=== PATIENT | female | born 1945 | race Caucasian/White ===

== ENCOUNTER 2025-06-28 07:28 | Outpatient (CLI) | payer MEDICARE, BC, SELFPAY | END 2025-06-28 07:29 | disposition home or self-care (01) | LOC: AMB 06-30 14:29 | PROVIDERS: Visit Provider Family Medicine | DX: S99.922A Unspecified injury of left foot, initial encounter (principal); W01.198A Fall on same level from slipping, tripping and stumbling with subsequent striking against other object, initial encounter; Y92.039 Unspecified place in apartment as the place of occurrence of the external cause | CPT/HCPCS: A0425; A0427 ==

== ENCOUNTER 2025-07-08 09:54 | Emergency (ER) | payer MEDICARE, BC, SELFPAY ==
--- OUTSIDE RECORDS SUMMARY | 2023-11-02 08:57 | XMS_ITS | Continuity of Care Document ---
Author Organization [facility] Address [address] [address] [place] [address] Phone Care Team Providers Care Shift Supervisor Melting Name Role Phone Solis Hill MD Unavailable Unavailabl e Allergies, Adverse Reactions, Alerts Substance Reaction Status Criticality doxycycline HivesHives Active No Information levofloxacin HivesHives Active No Information morphine Seeing things that weren't the Active No Information Sulfa (Sulfonamide Antibiotics) Rash Active No Information Medications Medication Instructions Dosage Effective Dates (start - stop) Status Comments losartan 50 mg tablet take 1 tablet by oral route every day 50 MG - Active Phazyme Gas and Acid 750 mg-250 mg chewable tablet - Active Farxiga 10 mg tablet take 1 tablet by oral route every day in the morning 10 MG - Active torsemide 20 mg tablet take 1 tablet by oral route every day 20 MG - Active levothyroxine 112 mcg tablet take 1 tablet by oral route every day 112 MCG - Active isosorbide mononitrate ER 120 mg tablet,extended release 24 hr take 1 tablet by oral route every day in the morning 120 MG - Active lansoprazole 30 mg capsule,delayed release take 1 capsule by oral route every day before a meal 30 MG - Active sertraline 50 mg tablet take 1 tablet by oral route every day 50 MG - Active spironolactone 25 mg tablet take 1 tablet by oral route every day 25 MG - Active buspirone 15 mg tablet take 1 tablet by oral route 2 times every day 15 MG - Active allopurinol 100 mg tablet take 1 tablet by oral route 2 times every day 100 MG - Active amlodipine 10 mg tablet take 1 tablet by oral route every day 10 MG - Active fenofibrate nanocrystallized 145 mg tablet take 1 tablet by oral route every day 145 MG - Active anastrozole 1 mg tablet take 1 tablet by oral route every day 1 MG - Active prasugrel 5 mg tablet take 1 tablet by oral route every day 5 MG - Active metoprolol succinate ER 50 mg tablet,extended release 24 hr take 1 tablet by oral route every day 50 MG - Active rosuvastatin 40 mg tablet take 1 tablet by oral route every day 40 MG - Active Calcium 600 + D(3) 600 mg-10 mcg (400 unit) tablet take 2 capsule by oral route every day 2 capsule - Active Vitamin D3 25 mcg (1,000 unit) tablet take 1 tablet by oral route every day 1 tablet - Active PreserVision AREDS-2 250 mg-90 mg-40 mg-1 mg capsule take 2 tablet by oral route every day 2 tablet - Active aspirin 81 mg tablet,delayed release take 1 tablet by oral route every day 81 MG - Active Procedures Procedure Date Init Hosp-da E&m Hi Severity 7 24 Offic/outpt E&m Estab Mod-hi 2 24 Offic/outpt E&m Estab Low-mod 3 Routine Serum Collection Dietitian Established Virtual Visit Dietitian New Virtual Visit Offic/outpt E&m Estab Mod-hi 2 23 Established Level 4 Init Hosp-da E&m Mod Severity 2 Subsqt Hosp-da E&m Minr Compl 2 Subsqt Hosp-da E&m Minr Compl 2 Advance Directives Directive Yes / No Effective Date File Name No Information Encounters Encounter Description Practice Location Reason(s) For Visit Diagnoses Date Provider Providers Copied on Encounter [facility], [address] [address], [place], [id number], [place] tel:[phone] [facility] No Information 4 Satinder Ely. [address] [facility], [place], [id number] , [place]. tel: [phone] Init Hosp-da E&m Hi Severity 7 [facility], [address] [address], [place], [id number], [place] tel:[phone] [facility] No Information 4 Nova Anguloy. [address] [facility] [address], [place], [id number] , [place]. tel:[phone] Referring Provider: Judah Yadav MD, [address] [place] [address], [id number]. tel:[phone] Offic/outpt E&m Estab Mod-hi 2 [facility], [address] [address], [place], [id number], [place] tel:[phone] [facility] GI Symptoms or Concerns (chief complaint) B12 deficiencyChange in bowel habitsDyspepsia 4 Rafal Lopez. [address] [facility], [address], [place], [id number] , [place]. tel:[phone] Referring Provider: Referral Self, USE FOR SELF REFERRALS. [facility], [address] [address], [place], [id number], [place] tel:[phone] [facility] No Information 4 Satinder Ely. [address] [facility], [address], [place], [id number] , [place]. tel:[phone] [facility], [address] [address], [place], [id number], [place] tel:[phone] [facility] B12 deficiency 3 Venus Garnica. [address], [address], [place], [place], [id number] , [place]. tel:[phone] Offic/outpt E&m Estab Low-mod [facility], [address] [address], [place], [place], [id number], [place] tel:[phone] [facility] GI Symptoms or Concerns (chief complaint) [id number] deficiency 3 Venus Garnica. [address] [facility], [address], [place], [id number] , [place]. [phone] Referring Provider: Referral Self, USE FOR SELF REFERRALS. [facility], [address] [address], [place], [id number], [place] tel:[phone] [facility] GI Symptoms or Concerns (chief complaint) Irritable bowel syndrome with diarrheaDietary counseling and surveillance 3 Russell Rivera. [address] [facility] [address], [address], [place], [place], [id number] , [place]. [phone] Referring Provider: Referral Self, USE FOR SELF REFERRALS. [facility], [address] [address], [place], [id number], [place] tel:[phone] [facility] No Information 3 Satinder Ely. [address] [facility], [address], [place], [place], [id number] , [place]. [phone] [facility], [address] [address], [place], [id number], [place] tel:[phone] [facility] GI Symptoms or Concerns (chief complaint) Irritable bowel syndrome with diarrheaDietary counseling and surveillance 3 Russell Rivera. [address] [facility], [address], [place], [place], [id number] , [place]. [phone] Referring Provider: Referral Self, USE FOR SELF REFERRALS. [facility], [address] [address], [place], [id number], [place] tel:[phone] [facility] No Information 3 Venus Garnica. [address] [facility], [address], [place], [id number] , [place]. tel: [phone] [facility], [address] [address], [place], [id number], [place] tel:[phone] [facility] Change in bowel habits 3 Venus Garnica. [address] [facility], [address], [place], [id number] , [place]. tel: [phone] Offic/outpt E&m Estab Mod-hi 2 [facility], [address] [address], [place], [id number], [place] tel:[phone] [facility] GI Symptoms or Concerns (chief complaint) Abdominal discomfortIrritab le bowel syndrome with diarrhea 3 Venus Garnica. [address] [facility], [facility] [address], [place], [id number] , [place]. tel: [phone] Referring Provider: Referral Self, USE FOR SELF REFERRALS. [facility], [address] [address], [place], [id number], [place] tel:[phone] [facility] No Information 3 Satinder Ely. [address] [facility], [facility] [address], [place], [id number] , [place]. tel: [phone] Established Level 4 [facility], [address] [address], [place], [id number], [place] tel:[phone] [facility] GI Symptoms or Concerns (chief complaint) Abdominal discomfortChange in bowel habits 3 Jens Malhotra. [address] [facility], [address], [place], [place], [id number] , [place]. tel: [phone] Referring Provider: Referral Self, USE FOR SELF REFERRALS. [facility], [address] [address], [place], [id number], [place] tel:[phone] [facility] No Information 3 Satinder Ely. [address] [facility], [facility] [address], [place], [id number] , [place]. tel: [phone] [facility], [address] [address], [place], [id number], [place] tel:[phone] [facility] Acute diverticulitis 2 Richie Sorto. [address] [facility], [address], [place], [id number] , [place]. tel: [phone] Init Hosp-da E&m Mod Severity [facility], [address] [address], [place], [id number], [place] tel:[phone] [facility] No Information 2 Richie Sorto. [address] [facility], [facility] [address], [place], [id number] , [place]. tel: [phone] Referring Provider: Judah Yadav MD, [address] [place] [address], [address]. tel:[phone] Family History Family Member Type Diagnosis Age At Onset Mother Problem (finding) GERD Mother Problem (finding) Cancer, unknown Mother Problem (finding) Cancer, breast Father Problem (finding) Alcoholism Brother Problem (finding) GERD Mother Problem (finding) Thyroid disorder Brother Problem (finding) Cancer, prostate Immunizations Vaccine Date Status Comments Respiratory syncytial virus (RSV), vaccine, recombinant, protein subunit RSV prefusion F, adjuvant reconstituted, 0.5 mL, preservative free administered Note: [facility] bi-direct ional interface ; Source: Other Registry SARS-COV-2 (COVID-19) vaccin e, mRNA, spike protein, LNP, preservative free, 50 mcg/0.5 mL dose administered Note: [facility] bi-direct ional interface ; Source: Other Registry influenza, seasonal vaccine, quadrivalent, adjuvanted, 0.5mL dose, preservative free administered Note: [facility] bi-di rectional interface ; Source: Other Registry tetanus toxoid, reduced diphtheria toxoid, and acellular pertussis vaccine, adsorbed administered Note: [facility] b i-directional interface ; Source: Other Registry SARS-COV-2 (COVID-19) vaccin e, mRNA, spike protein, LNP, bivalent, preservative free, 50 mcg/0.5 mL or 25 mcg/0.25 mL dose administered Note: [facility] bi-direct ional interface ; Source: Other Registry SARS-COV-2 (COVID-19) vaccin e, mRNA, spike protein, LNP, bivalent booster, preservative free, 50 mcg/0.5 mL or 25 mcg/0.25 mL dose administered Note: [facility] bi-direct ional interface ; Source: Other Registry influenza, seasonal vaccine, quadrivalent, adjuvanted, 0.5mL dose, preservative free administered Note: [facility] bi-di rectional interface ; Source: Other Registry influenza, seasonal vaccine, quadrivalent, adjuvanted, .5mL dose, preservative free administered Note: [facility] bi-di rectional interface ; Source: Other Registry SARS-COV-2 (COVID-19) vaccin e, mRNA, spike protein, LNP, preservative free, 100 mcg/0.5mL dose or 50 mcg/0.25mL dose administered Note: [facility] bi -directional interface ; Source: Other Registry SARS-COV-2 (COVID-19) vaccin e, mRNA, spike protein, LNP, preservative free, 100 mcg/0.5mL dose or 50 mcg/0.25mL dose administered Note: [facility] bi -directional interface ; Source: Other Registry influenza, seasonal vaccine, quadrivalent, adjuvanted, 0.5mL dose, preservative free administered Note: [facility] bi-di rectional interface ; Source: Other Registry influenza, seasonal vaccine, quadrivalent, adjuvanted, .5mL dose, preservative free administered Note: [facility] bi-di rectional interface ; Source: Other Registry SARS-COV-2 (COVID-19) vaccin e, mRNA, spike protein, LNP, preservative free, 100 mcg/0.5mL dose or 50 mcg/0.25mL dose administered Note: [facility] bi -directional interface ; Source: Other Registry zoster vaccine recombinant administered N ote: [facility] bi-directional interface ; Source: Other Registry influenza, seasonal vaccine, quadrivalent, adjuvanted, 0.5mL dose, preservative free administered Note: [facility] bi-di rectional interface ; Source: Other Registry influenza, seasonal vaccine, quadrivalent, adjuvanted, .5mL dose, preservative free administered Note: [facility] bi-di rectional interface ; Source: Other Registry zoster vaccine recombinant administered N ote: [facility] bi-directional interface ; Source: Other Registry Seasonal trivalent influenza vaccine, adjuvanted, preservative free administered Note: [facility] bi-direct ional interface ; Source: Other Registry Seasonal trivalent influenza vaccine, adjuvanted, preservative free administered Note: [facility] bi-direct ional interface ; Source: Other Registry Seasonal trivalent influenza vaccine, adjuvanted, preservative free administered Note: [facility] bi-direct ional interface ; Source: Other Registry influenza, high dose seasona l, preservative-free administered Note: [facility] bi-direct ional interface ; Source: Other Registry Prevnar 13 administered Note: [facility] bi-d irectional interface ; Source: Other Registry influenza, high dose seasona l, preservative-free administered Note: [facility] bi-direct ional interface ; Source: Other Registry influenza, high dose seasona l, preservative-free administered Note: [facility] bi-direct ional interface ; Source: Other Registry Pneumovax administered Note: [facility] bi-d irectional interface ; Source: Other Registry tetanus toxoid, reduced diphtheria toxoid, and acellular pertussis vaccine, adsorbed administered Note: [facility] b i-directional interface ; Source: Other Registry Influenza, seasonal, injecta ble, preservative free administered Note: [facility] bi-direct ional interface ; Source: Other Registry zoster vaccine, live administered Note: [facility] bi-directional interface ; Source: Other Registry Influenza, seasonal, injectable administe red Note: [facility] bi- directional interface ; Source: Other Registry Novel [id number], all formulations administered Note: [facility] bi-direct ional interface ; Source: Other Registry Influenza, seasonal, injectable administe red Note: [facility] bi- directional interface ; Source: Other Registry Pneumovax 23 administered Note: [facility] bi-d irectional interface ; Source: Other Registry Influenza, seasonal, injectable administe red Note: [facility] bi- directional interface ; Source: Other Registry Influenza, seasonal, injectable administe red Note: [facility] bi- directional interface ; Source: Other Registry Havrix administered Note: [facility] bi-d irectional interface ; Source: Other Registry tetanus and diphtheria toxoi ds, adsorbed, preservative free, for adult use (5 Lf of tetanus toxoid and 2 Lf of diphtheria toxoid) administered Note: [facility] bi-direct ional interface ; Source: Other Registry Havrix administered Note: [facility] bi-d irectional interface ; Source: Other Registry Influenza, seasonal, injectable administe red Note: [facility] bi- directional interface ; Source: Other Registry Influenza, seasonal, injectable administe red Note: [facility] bi- directional interface ; Source: Other Registry Payers Payer name Insurance type Covered democrat ID Authoriza tion(s) No Information Social History Type Description Quantity Date Captured Comments Sex Female Smoking Status No Information Chief Complaint And Reason For Visit No Information Reason For Referral Reason For Referral No Information Plan Of Treatment Date Type Action Status Referral Ordered: EGD Appointment date/timeframe: 09/02/2023 [id number] Ordered: Breath Test Glucose Appointment date/timeframe: First Available [id number] Ordered: Breath Test Lactose Appointment date/timeframe: First Available [id number] Ordered: Breath Test Fructose Appointment date/timeframe: First Available [id number] Ordered: Colonoscopy Appointment date/timeframe: 01/19/2022 ordered History Of Present Illness Encounter Date Complaint History Of Prese nt Illness GI Symptoms or Concerns Elda Keith is a pleasant 78F with hx of vitamin B12 deficiency,Heart failure, mitral valve regurgitation, CKD and CAD who presents for follow-up. she was last seen in clinic in May 2023 for vitamin B12 deficiency and irregular bowel habits. Her intrinsic factor antibody was tested to be positive and she was recommended to have an upper endoscopy. However, she reports that her abdominal symptoms have improved and she ended up cancelling in the upper endoscopy due to a trip she needs to take. Today, she reports having trouble with constipation and irregular bowel habits and abdominal bloating. This is similar to her prior endorse symptoms. She is using Gas-X/Phazyme twice a day which helps with bloating. At last visit, she also reported having 20 pound weight loss over the last few months, her weight has been stable recently. . No dysphagia, nausea or vomiting, GI bleeding. GI Symptoms or Concerns A 78-yea r-old female patient who presents for followup of irritable bowel syndrome. She has a history of heart failure, mitral valve regurgitation, CKD, and CAD, and was last seen in our clinic on 02/11/2023. Symptoms included borborygmi, abdominal discomfort, and frequent bowel movements. Symptoms started after she had an episode of diverticulitis back in 2021. Last colonoscopy was unremarkable in 2021 done by Colorectal Surgery. She also had a CT scan of the abdomen and pelvis with no clear findings. We provided her treatment with rifaximin for presumed IBS-D after the last visit. She called 2 weeks after the treatment reporting persistent symptoms; therefore, we started her on low-FODMAP diet. Today, she presents for a followup. The patient reports that she took rifaximin for 2 weeks with no benefit. She started low-FODMAP diet later on and noted significant improvement and she did the reintroduction face and noted that she tolerated everything, but she did not try give ag GI Symptoms or Concerns New Ginny ent Nutrition AssessmentAnthropometrics: Patient notes that she lost 20lb recently but this was thought to be due to her diuretic which has since been decreased. Other Supplements: Citrucel fiber, simethiconeFood and Exercise History: Patient has continued on the low fodmap diet but has started bringing foods back into to test her tolerance to them. She plans to continue this with hopes of expanding her diet. Nutrition Diagnosis:Food and nutrition related knowledge deficit related to the low fodmap diet as evidenced by patient request for information. Nutrition Discussion and Education:Met with patient for virtual follow up visit today. We last met on 03/10/23 and at that time, she was experiencing alot of what sounded to be gas pain. She would get rumbling in her stomach after eating, followed by intense pain where she needed to lay down for awhile, followed by passing alot of gas. She had tried the low fodmap diet at that point but not strictly and I recommended a trial of this. She had a pharmacist recommend taking a simethicone based medication with meals which she did. She notes that this has helped tremendously. She has been able to bring in some new foods which she was limiting before like apples, beef roast and a little bit of ice cream (she also takes lactaid pills). She was able to eat kenyan food comfortably also. She plans to continue to expand her diet and I encouraged her to do this. She is appreciative of visit and welcome to follow ups as needed. GI Symptoms or Concerns New Ginny ent Nutrition AssessmentAnthropometrics: Wt: Went from 173lb in January to currently 164.4lbOther Supplements: Miralax - 1.5 tsp every day which has helped to loosen up the stoolsFood and Exercise History: Diet Recall: Recently reduced lactose Breakfast: Raisin Bran with lactaid or unsweetened almond milk, cutie oranges (1-2) and a few grapesLunch: Lettuce salad with poppy seed dressing, white rice, 1/2 bananaDinner: Fried chicken (peeled off skin) Beverages: Water mostly, sometimes Simply Lemonade, occasionally sugar free gingeraleNutrition Diagnosis:Food and nutrition related knowledge deficit related to the low fodmap diet as evidenced by patient request for information. Nutrition Discussion and Education:Met with patient for virtual visit today. She has a history of diverticulosis with recent flare of diverticulitis requiring hospital stay. She notes that she recently had a CT scan after hospital stay and no diverticulitis was noted. Over the past 6-8 months, she has been getting abdominal pain after she eats, typically later in the day but not always. She notes that after an hour or so the pain subsides and she experiences a large amount of gas and/or loose stool. She took rifaxamin for two weeks but did not feel this helped fully. She has been trying the low fodmap diet but is not adhering to this strictly but does not feel that this has fully helped either. She has been taking Miralax for the past month and this has helped her bowel movements from the constipated end toward more formed, regular stools. She notes that the pain and gas are still present, however. Her pharmacist recently recommended a simethicone based medication and she is considering trying this. We discussed the breath tests that were also discussed last MD visit and she may be interested in the glucose breath test. She was unsure about this test before because it sounded confusing. She may also give the low fodmap diet another try for a week or so following this strictly to assess for symptom relief. She would like to follow up in 1-2 months and an order was placed for this today. GI Symptoms or Concerns 78-year- old female patient with history of heart failure, mitral valve regurgitation, CKD, CAD, who presents for follow-up. She was last seen in the GI clinic in July by Dr. Colindres. At that time she was having symptoms of borborygmi, abdominal cramps, and frequent bowel movements during the day, with relief of symptoms after bowel movements. At that time she noted increased symptoms after starting famotidine, and famotidine was restarted them. She was advised to start Colace then, however that caused her diarrhea therefore she stopped it. She reports that she did well after that and required hospitalization twice between September and October for COVID and for heart failure and continued to do well, however later on her symptoms started again and became more significant recently. Similar to what she had in the past but more significant with the borborygmi, and frequent bowel movements during the day, and abdominal cramps that are relieved after bowel movements or passing of gas. She reports that she was started on torsemide and Farxiga before symptoms started again. She was wondering if symptoms are related to these medications, however she did have similar but less severe symptoms when she was seen in July before starting these medications. She reports that she had a colonoscopy done in February 2022 by Colorectal surgery and had hemorrhoidal banding then. She did have some rectal bleeding recently, and was evaluated again by Colorectal surgery just recently, and was advised that these symptoms are related to frequent bowel movements and her hemorrhoids. Patient reports that her symptoms occur mostly after lunch and after supper. Nothing specific that trigger her symptoms other than ice cream that she noticed that it does trigger more symptoms recently. She has had same breakfast for a long period of time including grapes, cereal, with no issues after breakfast. Of note, patient used to have normal 1 bowel movement every day in the past before she was hospitalized in 2021 for an episode of diverticulitis. Since that time she started having these new symptoms. GI Symptoms or Concerns I had th e pleasure of having a virtual consultation with Ms. Elda Keith. Elda consented to a virtual consultation. We were alone on the line together. We spoke for approximately 20 minutes. I spent an additional 15 minutes reviewing medical records and coordinating care. The level of clinical decision making was moderate to high.CHIEF COMPLAINTChange in bowel habits and abdominal discomfort.HISTORY OF PRESENT ILLNESSAs you recall, Elda is a 77-year-old woman with a history of CKD, CAD, hypertension, mitral valve regurgitation, and history of embolism, who presents to GI clinic with a complaint of abdominal discomfort and change in bowel habits. She says the symptoms have been ongoing for several months. She describes a discomfort in the lower abdomen, then urgency to make a bowel movement and she will eventually pass some stool and feel better. She also has auditory digestion and borborygmi, lots of gurgling. She was seen in November 2021 by my partner at Functional Status Date Functional Assessmen t No Information Instructions Date Instruction Additional Infor bola It was a pleasure me eting you today, as we discussed in clinic: We will plan to do an upper endoscopy with biopsies of your upper GI tract to evaluate for autoimmune gastritis.Continue Gas-X as needed for bloating, can also use IB [place] as neededStart every other day Miralax and self-titrate to ensure daily bowel movements. If you have any worsening symptoms, please contact us or schedule a visit with us. Related to B12 deficiency 1. Check anti-intrin sic factor antibody and antiparietal cell antibody.2. We will check celiac markers.3. We told the patient that if she develops recurrence of her symptoms, then we will refer her for an upper endoscopy even if autoimmune gastritis markers are negative. If the markers are positive, we will refer for an upper endoscopy, which needs to be done in the hospital because of her multiple comorbidities.4. Continue with Phazyme for her symptoms.5. Follow up in 3 months. We do not have H. pylori blood test available, therefore we cannot check for H. pylori at this time given that she is on antacid medication. Related to Dyspepsia 1. Continue taking t he simethicone based medication if you find this is helping to control the gas. 2. Do continue expanding your diet slowly to see if we can't start including some higher fodmap foods that you were previously limiting. 3. Continue with the lactaid pills if you find this is helping as well. You could certainly try not using them a time or two to see if it's really needed, but start taking them again if you experience symptoms. 4. Feel free to make a follow up visit at any time or send questions/concerns through the patient portal. Related to Irritable bowel syndrome with diarrhea 1. Try a simethicone based medication for several weeks to see if this helps with the pain and gas production. 2. After several weeks, you could try adding a small amount of fiber like Citrucel back into your routine as long as you keep the Miralax on board. It sounds like Miralax is the most helpful for you but you could try combining them to see if you get more relief. 3. Finally, you can try adhering very strictly to the low fodmap diet for a week or so to see if this is helpful. Look into [employer] for low fodmap delivery meals if this is of interest to you. 4. Remember, only try one thing that we discussed at a time so we know what is working. 5. I have placed a follow up order for us to meet again within 2 months. If you have any questions or concerns in the meantime you can send them through the patient portal or call [phone], [phone]. Related to Irritable bowel syndrome with diarrhea Start rifaximin 550 milligram t.i.d. for 2 weeks for IBS D. Advised to contact us in 3-4 weeks, and if symptoms persist, to start low FODMAP diet. She will need to do it for 3 weeks persistently, and if beneficial to start the reintroduction phase, otherwise if no benefit then to stop it. May consider hydrogen breath testing for lactose, fructose, and bacterial overgrowth with lactulose given that she is diabetic. May also consider tricyclic antidepressant. Follow-up in 3 months. Related to Irritable bowel syndrome with diarrhea 1. Restart famotidin e 20 mg twice per day in addition to lansoprazole.2. Restart fiber supplement, Citrucel, along with Colace and she will adjust the dose as she sees fit.3. We will leave her next appointment on an as-needed basis and she knows she can reach me at any time should the need arise.Thank you so much for involving me in the care of Ms. Keith. Related to Abdominal discomfort Assessments Type Assessment Date No Information Patient Care Teams Name Effective Dates (start - stop) Status Members No Information
--- OUTSIDE RECORDS SUMMARY | 2023-11-02 08:57 | XMS_ITS | Continuity of Care Document ---
Author Organization [facility] Address [address] [address] [place] [address] Phone Care Team Providers Care Bookkeeper Name Role Phone Solis Hill MD Unavailable [...] Diagnoses Date Provider Providers Copied on Encounter [facility], [address] [address], [place], [id number], [place] tel:[phone] [facility] No Information 4 Satinder Ely. [address], [place], [id number] , [place]. tel: [phone] Init Hosp-da E&m Hi Severity 7 [facility], [address] [address], [place], [id number], [place] tel:[phone] [facility] No Information 4 Nova Anguloy. [address], [place], [id number] , [place]. tel: [phone] Referring Provider: Judah Yadav MD, [address] [place] [address], [address]. tel:[phone] Offic/outpt E&m Estab Mod-hi 2 [facility], [address] [address], [place], [id number], [place] tel:[phone] [facility] GI Symptoms or Concerns (chief complaint) B12 deficiencyChange in bowel habitsDyspepsia 4 Rafal Lopez. [address], [place], [id number] , [place]. [phone] Referring Provider: Referral Self, USE FOR SELF REFERRALS. [facility], [address] [address], [place], [id number], [place] tel:[phone] [facility] No Information 4 Satinder Ely. [address], [place], [place], [id number] , [place]. tel:[phone] [facility], [address] [address], [place], [id number], [place] tel:[phone] [facility] B12 deficiency 3 Venus Garnica. [address], [place], [place], [address] , [place]. tel:[phone] Offic/outpt E&m Estab Low-mod [facility], [address] [address], [place], [id number], [place] tel:[phone] [facility] GI Symptoms or Concerns (chief complaint) [id number] deficiency 3 Venus Garnica. [address], [place], [place], [id number] , [place]. [phone] Referring Provider: Referral Self, USE FOR SELF REFERRALS. [facility], [address] [address], [place], [place], [id number], [place] tel:[phone] [facility] GI Symptoms or Concerns (chief complaint) Irritable bowel syndrome with diarrheaDietary counseling and surveillance 3 Russell Rivera. [address], [place], [place], [id number] , [place]. [phone] Referring Provider: Referral Self, USE FOR SELF REFERRALS. [facility], [address] [address], [place], [id number], [place] tel:[phone] [facility] No Information 3 Satinder Ely. [address], [place], [place], [address] , [place]. [phone] [facility], [address] [address], [place], [address], [place] tel:[phone] [facility] GI Symptoms or Concerns (chief complaint) Irritable bowel syndrome with diarrheaDietary counseling and surveillance 3 Russell Rivera. [address], [place], [place], [address] , [place]. [phone] Referring Provider: Referral Self, USE FOR SELF REFERRALS. [facility], [address] [address], [place], [address], [place] tel:[phone] [facility] No Information 3 Venus Garnica. [address], [place], [id number] , [place]. tel: [phone] [facility], [address] [address], [place], [address], [place] tel:[phone] [facility] Change in bowel habits 3 Venus Garnica. [address], [place], [id number] , [place]. tel: [phone] Offic/outpt E&m Estab Mod-hi 2 [facility], [address] [address], [place], [id number], [place] tel:[phone] [facility] GI Symptoms or Concerns (chief complaint) Abdominal discomfortIrritab le bowel syndrome with diarrhea 3 Venus Garnica. [address], [facility] [address], [place], [id number] , [place]. tel: [phone] Referring Provider: Referral Self, USE FOR SELF REFERRALS. [facility], [address] [address], [place], [id number], [place] tel:[phone] [facility] No Information 3 Satinder Ely. [address], [facility] [address], [place], [id number] , [place]. tel: [phone] Established Level 4 [facility], [address] [address], [place], [id number], [place] tel:[phone] [facility] GI Symptoms or Concerns (chief complaint) Abdominal discomfortChange in bowel habits 3 Jens Malhotra. [address], [place], [place], [address] , [place]. tel: [phone] Referring Provider: Referral Self, USE FOR SELF REFERRALS. [facility], [address] [address], [place], [place], [address], [place] tel:[phone] [facility] No Information 3 Satinder Ely. [address], [facility] [address], [place], [id number] , [place]. tel: [phone] [facility], [address] [address], [place], [id number], [place] tel:[phone] [facility] Acute diverticulitis 2 Richie Sorto. [address], [place], [id number] , [place]. tel: [phone] Init Hosp-da E&m Mod Severity [facility], [address] [address], [place], [id number], [place] tel:[phone] [facility] No Information 2 Richie Sorto. [address], [facility] [address], [place], [id number] , [place]. tel: [phone] Referring Provider: Judah Yad[place] MD, [id number] [place] [address], [address]. tel:[phone] Family History Family Member Type Diagnosis Age [...] directional interface ; Source: Other Registry Novel [id number], all formulations administered Note: [facility] bi-direct ional [...] Registry Payers Payer name Insurance type Covered republican ID Authoriza tion(s) No Information Social History Type Description Quantity Date Captured Comments Sex Female Smoking Status No Information Chief Complaint And Reason For Visit No Information Reason For Referral Reason For Referral No Information Plan Of Treatment Date Type Action Status Referral Ordered: EGD Appointment date/timeframe: 09/02/2023 [id number] Ordered: Breath Test Glucose Appointment date/timeframe: First Available [id number] Ordered: Breath Test Lactose Appointment date/timeframe: First Available [id number] Ordered: Breath Test Fructose Appointment date/timeframe: First Available [id number] Ordered: Colonoscopy Appointment date/timeframe: 01/19/2022 ordered History [...] lactaid pills). She was able to eat [place] food comfortably also. She plans to continue [...] see if this is helpful. Look into [employer] for low fodmap delivery meals if this [...] them through the patient portal or call [phone], [phone]. Related to Irritable bowel syndrome with diarrhea [...]
--- OUTSIDE RECORDS SUMMARY | 2025-06-28 09:10 | XMS_ITS | Encounter Summary ---
Author Organization [facility] Address [address] [place] [id number] Care Team Providers Care Steersman Name Role Phone Judah Yadav MD Primary Care Provider [phone] Reason for Visit * ReasonCommentsFoot Pain Encounter Details DateTypeDepartmentCare Team (Latest Contact Info)Qdesrpoatwh36/17/2025 9:10 AM GRAIN ELEVATOR MAN - 06/28/2025 11:25 AM [facility] [address] [place] [id number] [phone] Diaz Chowdhury MD [facility] [address] [place], [place] [id number] Foot injury, left, initial encounter (Primary Dx); Acute left ankle pain; Acute pain of left knee Discharge Disposition: Home or Self Care Social History Tobacco UseTypesPacks/DayYears UsedDateSmoking Tobacco: FormerCigarettes Smokeless Tobacco: NeverAlcohol UseStandard Drinks/WeekCommentsNot Currently0 (1 standard drink = 0.6 oz pure alcohol)Adolescent EducationAnswerDate Recorded Getting School Help NeededNot on file3CommentsNoSex and Gender InformationValueDate RecordedSex Assigned at BirthNot on fileLegal SexFemale 05/16/2012 3:14 AM CSTGender IdentityNot on fileSexual OrientationNot on file documented as of this encounter Last Filed Vital Signs Vital SignReadingTime TakenCommentsBlood Rhzdutvf594/8706/28/2025 8:21 AM GRAIN ELEVATOR MAN Jbcsi399506/28/2025 8:21 AM XFOVjrbommrbhx53.1 ??C (96.9 ??F)06/28/2025 8:21 AM CSTRespiratory Rxsb512508/29/2024 8:21 AM CSTOxygen Gkjqrkzodk67%06/28/2025 8:22 AM CSTInhaled Oxygen Concentration--Yvstge43.5 kg (162 lb)06/28/2025 8:21 AM GRAIN ELEVATOR MAN Height--Body Mass Index30.98003/12/2022 5:49 AM CDTdocumented in this encounter Functional Status * Calculated C-SSRS Risk Score (Lifetime/Recent)AnswerDate of AssessmentAuthorNo Risk Vgciydxaw63/17/2025 8:17 AM Evelyn Dill RN * Piatt Suicide Severity Rating Scale (Screener/Recent Self-Report)Question AnswerDate of AssessmentAuthor1. Wish to be (Past 1 Month)No06/28/2025 8:17 AM Evelyn Dill RN2. Non-Specific Active Suicidal Thoughts (Past 1 Month)No06/28/2025 8:17 AM Evelyn Dill RN6. Suicidal Behavior (Lifetime)No06/28/2025 8:17 AM Evelyn Dill RN documented as of this encounter Discharge Instructions * Discharge Instructions* Diaz Chowdhury MD - 06/28/2025 11:08 AM GRAIN ELEVATOR MAN It was a pleasure taking care of you today. I hope you feel much better soon. Your x-rays were reassuring. Please follow-up with orthopedic doctor in 3-5 days. Return immediately for worse pain or any other concerns. N ELEVATOR MAN * Attachments The following attachments cannot be sent through Care Everywhere. * Foot Pain (Peruvian) documented in this encounter Medications at Time of Discharge MedicationSigDispense QuantityRefillsLast FilledStart DateEnd Date acetaminophen (TYLENOL) 325 MG tablet Take 650 mg by mouth every 6 hours as needed for mild pain allopurinol (ZYLOPRIM) 100 MG tablet Take 200 mg by mouth daily amLODIPine (NORVASC) 10 MG tablet Take 10 mg by mouth daily anastrozole (ARIMIDEX) 1 MG tablet Take 1 mg by mouth daily aspirin (ASA) 81 MG chewable tablet Take 81 mg by mouth daily (with breakfast) Blood Pressure KIT Indications:XL busPIRone (BUSPAR) 15 MG tablet Take 15 mg by mouth 2 times daily CALCIUM-CHOLECALCIFEROL PO Indications:600mg -200 mg capsulesTake 2 capsules by mouth daily cephALEXin (KEFLEX) 500 MG capsule Indications:Takes 4 (500mg) capsules prior to a procedure.Take 2,000 mg by mouth once as needed ELIQUIS ANTICOAGULANT 5 MG tablet Take 5 mg by mouth 2 times daily. EPINEPHrine (ANY BX GENERIC EQUIV) 0.3 MG/0.3ML injection 2-pack Inject 0.3 mg into the muscle once as needed for anaphylaxis Famotidine (PEPCID PO) Take 415 mg by mouth 2 times daily fenofibrate (TRICOR) 145 MG tablet Take 145 mg by mouth daily (with breakfast) isosorbide mononitrate CR (IMDUR) 120 MG 24 HR ER tablet Take 120 mg by mouth daily before breakfast Lansoprazole (PREVACID PO) Take 30 mg by mouth every morning (before breakfast) levothyroxine (SYNTHROID/LEVOTHROID) 100 MCG tablet Take 112 mcg by mouth daily before breakfast loratadine (CLARITIN) 10 MG tablet Take 10 mg by mouth daily LORazepam (ATIVAN) 0.5 MG tablet Indications:Before a Dental Procedure.Take by mouth once as needed for anxiety losartan (COZAAR) 100 MG tablet Take 100 mg by mouth daily metoprolol succinate ER (TOPROL XL) 50 MG 24 hr tablet Take 50 mg by mouth daily Multiple Vitamins-Minerals (PRESERVISION AREDS 2 PO) Take 1 capsule by mouth 2 times daily nitroGLYcerin (NITROSTAT) 0.[address] 0.4 mg under the tongue every 5 minutes as needed for chest pain For chest pain place 1 tablet under the tongue every 5 minutes for 3 doses. If symptoms persist 5 minutes after 1st dose call 911. ondansetron (ZOFRAN) 4 MG tablet Take by mouth every 8 hours as needed for nausea pramoxine-HC (PRAMOSONE) 1-2.5 % external cream Indications:Use for up to [address] rect[address] 3 times daily as needed for itching prasugrel (EFFIENT) 5 MG TABS tablet Indications:hold for 10 days. Resume on 03/21.Take 5 mg by mouth every morning Probiotic Product (PROBIOTIC-10 PO) Take 1 capsule by mouth daily rosuvastatin (CRESTOR) 40 MG tablet Take 40 mg by mouth At Bedtime sertraline (ZOLOFT) 50 MG tablet Take 50 mg by mouth daily spironolactone (ALDACTONE) 25 MG tablet Take 25 mg by mouth every morning Vitamin D (Cholecalciferol) 25 MCG (1000 UT) TABS Take 1 tablet by mouth dailydocumented as of this encounter ED Notes * Diaz Chowdhury MD - 06/28/2025 9:41 AM CST Emergency Department Attending Supervision Note I evaluated this patient with Scott MURRY. Briefly, the patient presented with left foot injury as described in [facility]AN-Del note also with tendernessto the ankle and left knee on exam. Patient has been ambulatory but has had discomfort with this. Exam shows predominantly left lateral midfoot tenderness without deformity, but there is tenderness to the lateral ankle and lateral knee. X-rays were performed and fortunately show no acute fracture. She is ambulatory with orthopedic boot and walker, the latter of which is her baseline. No other identified injuries. She is safe addition at this time with her daughter. Plan orthopedic follow-up forrecheck in 5 to 7 days and return precaution for worse pain or any other concerns. On exam, Independent interpretation: No fracture or dislocation on x-ray left knee, left ankle, or left foot Review of external records: Reviewed 06/06/2025 family medicine visit for comprehensive view of past medical history Visit Diagnosis, Associated Orders, and Comments ICD-10-CM 1. Foot injury, left, initial encounter S99.922A 2. Acute left ankle pain M25.572 3. Acute pain of left knee M25.562 \ Diaz Chowdhury MD [facility] Emergency Department Diaz Chowdhury MD 06/28/25 1648 N ELEVATOR MAN * Andie Chavez PA-C - 06/28/2025 9:28 AM CST Emergency Department Note History of Present Illness Chief Complaint: Foot Pain HPI Elda Keith is a 80 year old female here for evaluation of foot pain. Patient was moving her humidifier last night, she attempted to step over the humidifier but she stumbled over her feet and tripped. Hit her left foot on the bedpost, and fell onto her left knee. She did not hit her head, she did not have loss of consciousness. She was able to ambulate after the incident though she had significant pain with this. She was using her walker and felt she had to limp onto her right foot secondary to pain in her left foot. She uses a walker at baseline. She has taken Tylenol for her pain, this does improve somewhat. She endorses a numbness sensation in her toes. She's on Eliquis. She denies any other symptoms. Independent Historian: None Review of External Notes: None Past Medical History Medical History and Problem List Past Medical History: Diagnosis Date Antiplatelet or antithrombotic long-term use Cerebral artery occlusion with cerebral infarction (H) Complication of anesthesia Congestive heart failure (H) Coronary artery disease Heart attack (H) 2007 Heart murmur Hypertension Pacemaker PONV (postoperative nausea and vomiting) Stented coronary artery Medications acetaminophen (TYLENOL) 325 MG tablet allopurinol (ZYLOPRIM) 100 MG tablet amLODIPine (NORVASC) 10 MG tablet anastrozole (ARIMIDEX) 1 MG tablet aspirin (ASA) 81 MG chewable tablet Blood Pressure KIT busPIRone (BUSPAR) 15 MG tablet CALCIUM-CHOLECALCIFEROL PO cephALEXin (KEFLEX) 500 MG capsule ELIQUIS ANTICOAGULANT 5 MG tablet EPINEPHrine (ANY BX GENERIC EQUIV) 0.3 MG/0.3ML injection 2-pack Famotidine (PEPCID PO) fenofibrate (TRICOR) 145 MG tablet isosorbide mononitrate CR (IMDUR) 120 MG 24 HR ER tablet Lansoprazole (PREVACID PO) levothyroxine (SYNTHROID/LEVOTHROID) 100 MCG tablet loratadine (CLARITIN) 10 MG tablet LORazepam (ATIVAN) 0.5 MG tablet losartan (COZAAR) 100 MG tablet metoprolol succinate ER (TOPROL XL) 50 MG 24 hr tablet Multiple Vitamins-Minerals (PRESERVISION AREDS 2 PO) nitroGLYcerin (NITROSTAT) 0.4 MG sublingual tablet ondansetron (ZOFRAN) 4 MG tablet pramoxine-HC (PRAMOSONE) 1-2.5 % external cream prasugrel (EFFIENT) 5 MG TABS tablet Probiotic Product (PROBIOTIC-10 PO) rosuvastatin (CRESTOR) 40 MG tablet sertraline (ZOLOFT) 50 MG tablet spironolactone (ALDACTONE) 25 MG tablet Vitamin D (Cholecalciferol) 25 MCG (1000 UT) TABS Past Surgical History: Past Surgical History: Procedure Laterality Date ANGIOGRAM Right 2016 stent behind right knee ARTHROPLASTY KNEE Left 2003 ARTHROPLASTY KNEE Right BREAST BIOPSY, RT/LT Left 2019 CAROTID ENDARTERECTOMY Left 2010 CAROTID ENDARTERECTOMY Right 2017 COLONOSCOPY N/A 03/12/2022 Procedure: Intraoperative colonoscopy with polypectomy and hemorrhoid banding.; Surgeon: Negra Perez MD; Location: [facility] OR CORONARY ARTERY BYPASS 12/2008 triple bypass EP PACEMAKER 2015 [employer] HEMORRHOIDECTOMY EXTERNAL N/A 03/12/2022 Procedure: exam under anesthesia with hemorrhoid banding - x2 bands; Surgeon: Negra Perez MD; Location: [facility] OR LUMPECTOMY BREAST Left 2019 STENT Left 2010 iliac stent [employer] DRUG-ELUTING STENTS, SINGLE Has several Past Medical History Patient Vitals for the past 24 hrs: BP Temp Temp src Pulse Resp SpO2 Weight 06/28/25 0822 -- -- -- -- -- 96 % -- 06/28/25 0821 (!) 181/87 96.9 ??F (36.1 ??C) Temporal 71 18 -- 73.5 kg (162 lb) Physical Exam General: Awake, sitting comfortably, overall well appearing. Head: Normocephalic, atraumatic EENT: Conjunctivae normal appearing, eyes track normally. External ears and nose normal. Neck: Moves freely without difficulty Cardiovascular: Appears well perfused. 2+ DP pulses symmetrically. Pulmonary: Non-labored breathing on RA. Abdomen: Non distended. MS: Moves upper extremities symmetrically. Tender to palpation in left lateral malleolus, lateral midfoot. There is some edema and ecchymoses/erythema of the midfoot. Large ecchymoses on left knee, tender to palpation on lateral knee joint line. Non tender over the tibia. Limited range of motion inleft ankle secondary to pain. Full range of motion in bilateral knees. Skin: Warm, dry. No lower extremity edema. No rashes of visualized skin. Neuro: Alert, attentive. Sensation intact and symmetric bilaterally in lower extremities. 5/5 strength in right and 4/5 in left ankle plantar/dorsiflexion secondary to pain. 5/5 strength bilaterally in knee flexion and extension. Psych: Normal affect. Diagnostics Lab Results Labs Ordered and Resulted from Time of ED Arrival to Time of ED Departure - No data to display Imaging XR Knee Left 3 Views Final Result IMPRESSION: There is a left total knee arthroplasty. Excellent position and alignment of components. There is no evidence of complication or periprosthetic fracture. No significant effusion. XR Ankle Left G/E 3 Views Final Result IMPRESSION: 1. Old healed distal fibular fracture with affixing screws showing no evidence of complication. 2. Mild osteoarthrosis of the ankle joint. 3. Small chronic ossicles adjacent to the medial malleolus from old trauma. 4. Diffuse bone demineralization. 5. Small calcaneal enthesophytes. 6. There is no evidence of an acute fracture and there is no evidence of talar dome osteochondral lesion. The ankle mortise is symmetric. XR Foot Left G/E 3 Views Final Result IMPRESSION: No acute fracture. Small plantar and Achilles' heel spurs. Mild degenerative changes throughout the midfoot. Cannulated screw fixation of a healed lateral malleolar fracture. EKG Independent Interpretation None ED Course Medications Administered Medications - No data to display Procedures Procedures Discussion of Management None ED Course Additional Documentation None Medical Decision Making / Diagnosis [facility] Diagnoses: None MIPS None MDM Elda Keith is a 80 year old female here for evaluation of foot pain. Vitals reviewed, she ishypertensive otherwise normal. Over a well-appearing on exam. She has point bony tenderness on the ankle, mid foot, knee on the left. X- rays of foot, ankle, knee fortunately are all negative for acute fracture or dislocation. There are multiple degenerative changes, knee replacement with good positioning, 2 screws in the ankle from previous fracture. I offered the patient oxycodone to treat her pain while here in the ED, she denies. The patient had reported a numbness sensation in her toes, however on exam she has equal and symmetric sensation bilaterally. Suspect the sensation she is experiencing is secondary to some edema in her foot. Due to inability to ambulate secondary to pain the patient was prevented with a Aircast walking boot. She successfully ambulated with boot and walker, which she uses is at baseline. The patient and her daughter feel comfortable with discharge at this point, And I feel this is appropriate. She will plan to follow up with orthopedic doctor for recheck. Re turn to the ED precautions were discussed. Patient was discharged in stable condition. Disposition The patient was discharged. Diagnosis ICD-10-CM 1. Foot injury, left, initial encounter S99.922A 2. Acute left ankle pain M25.572 3. Acute pain of left knee M25.562 Discharge Medications Discharge Medication List as of 06/28/2025 11:20 AM GRADY Blue Hallie [place], PA-C 06/28/25 1650 N ELEVATOR MAN * Evelyn Keane RN - 06/28/2025 8:19 AM CST Pt arrives via EMS from home. Reports tripping over her humidifier yesterday and hitting her L footon the bed. Is on a blood thinner, denies LOC or a head strike. States she is not able to bear weight on the L foot today. CMS intact. Redness and a bump present at the site. Rates pain as a 10. Denies pain medication from EMS N ELEVATOR MAN documented in this encounter Plan of Treatment Not on file documented as of this encounter Procedures Procedure NamePriorityDate/TimeAssociated DiagnosisCommentsXR KNEE LEFT 3 VIEWS STAT108/29/2024 10:44 AM GRAIN ELEVATOR MAN XR ANKLE LEFT G/E 3 QAVUNQQWM56/17/2025 10:43 AM GRAIN ELEVATOR MAN XR FOOT LEFT G/E 3 WKOOYXHAZ05/17/2025 8:44 AM GRAIN ELEVATOR MAN documented in this encounter Results * XR Knee Left 3 Views (06/28/2025 10:44 AM GRAIN ELEVATOR MAN)Anatomical RegionLaterality ModalityThigh, Knee, LegLeftComputed RadiographySpecimen (Source)Anatomical Location / LateralityCollection Method / VolumeCollection TimeReceived Time 06/28/2025 10:44 AM GRAIN ELEVATOR MAN Impressions 06/28/2025 10:54 AM GRAIN ELEVATOR MAN IMPRESSION: There is a left total knee arthroplasty. Excellent position and alignment of components. There is no evidence of complication or periprosthetic fracture. No significant effusion. Narrative 06/28/2025 10:54 AM GRAIN ELEVATOR MAN EXAM: XR KNEE LEFT 3 VIEWS LOCATION: [facility] DATE: 06/28/2025 INDICATION: Fall, ecchymoses, tender to palpation in lateral joint line. COMPARISON: None. Procedure Note Yariel Bunn MD - 06/28/2025 EXAM: XR KNEE LEFT 3 VIEWS LOCATION: [facility] DATE: 06/28/2025 INDICATION: Fall, ecchymoses, tender to palpation in lateral joint line. COMPARISON: None. IMPRESSION: There is a left total knee arthroplasty. Excellent position and alignmentof components. There is no evidence of complication or periprostheticfracture. No significant effusion. Authorizing ProviderResult TypeResult StatusHallie Tamela Chavez [facility] DIAGNOSTIC IMAGING ORDERABLESFinal Result * XR Ankle Left G/E 3 Views (06/28/2025 10:43 AM GRAIN ELEVATOR MAN)Anatomical RegionLaterality ModalityLeg, Ankle, FootLeftComputed RadiographySpecimen (Source)Anatomical Location / LateralityCollection Method / VolumeCollection TimeReceived Time 06/28/2025 10:43 AM GRAIN ELEVATOR MAN Impressions 06/28/2025 10:54 AM GRAIN ELEVATOR MAN IMPRESSION: 1. Old healed distal fibular fracture with affixing screws showing no evidence of complication. 2. Mild osteoarthrosis of the ankle joint. 3. Small chronic ossicles adjacent to the medial malleolus from old trauma. 4. Diffuse bone demineralization. 5. Small calcaneal enthesophytes. 6. There is no evidence of an acute fracture and there is no evidence of talar dome osteochondral lesion. The ankle mortise is symmetric. Narrative 06/28/2025 10:54 AM GRAIN ELEVATOR MAN EXAM: XR ANKLE LEFT G/E 3 VIEWS LOCATION: [facility] DATE: 06/28/2025 INDICATION: Fall, tender to palpation of lateral malleolus. COMPARISON: None. Procedure Note Yariel Bunn MD - 06/28/2025 EXAM: XR ANKLE LEFT G/E 3 VIEWS LOCATION: [facility] DATE: 06/28/2025 INDICATION: Fall, tender to palpation of lateral malleolus. COMPARISON: None. IMPRESSION: 1. Old healed distal fibular fracture with affixing screws showing noevidence of complication. 2. Mild osteoarthrosis of the ankle joint. 3. Small chronic ossicles adjacent to the medial malleolus from oldtrauma. 4. Diffuse bone demineralization. 5. Small calcaneal enthesophytes. 6. There is no evidence of an acute fracture and there is no evidence oftalar dome osteochondral lesion. The ankle mortise is symmetric. Authorizing ProviderResult TypeResult StatusHallie Tamela MATASAINT JOHN'S HOSPITALNicole DIAGNOSTIC IMAGING ORDERABLESFinal Result * XR Foot Left G/E 3 Views (06/28/2025 8:44 AM GRAIN ELEVATOR MAN)Anatomical RegionLaterality ModalityFoot, AnkleLeftComputed RadiographySpecimen (Source)Anatomical Location / LateralityCollection Method / VolumeCollection TimeReceived Time 06/28/2025 8:44 AM GRAIN ELEVATOR MAN Impressions 06/28/2025 8:49 AM GRAIN ELEVATOR MAN IMPRESSION: No acute fracture. Small plantar and Achilles' heel spurs. Mild degenerative changes throughout the midfoot. Cannulated screw fixation of a healed lateral malleolar fracture. Narrative 06/28/2025 8:49 AM GRAIN ELEVATOR MAN EXAM: XR FOOT LEFT G/E 3 VIEWS LOCATION: [facility] DATE: 06/28/2025 INDICATION: Foot pain. COMPARISON: None. Procedure Note Maykel Mabry MD - 06/28/2025 EXAM: XR FOOT LEFT G/E 3 VIEWS LOCATION: [facility] DATE: 06/28/2025 INDICATION: Foot pain. COMPARISON: None. IMPRESSION: No acute fracture. Small plantar and Achilles' heel spurs.Mild degenerative changes throughout the midfoot. Cannulated screwfixation of a healed lateral malleolar fracture. Authorizing ProviderResult TypeResult StatusJohn Dawit Chowdhury MDIMNicole DIAGNOSTIC IMAGING ORDERABLESFinal Result documented in this encounter Visit Diagnoses Diagnosis Foot injury, left, initial encounter- Primary Acute left ankle pain Acute pain of left knee documented in this encounter Active and Recently Administered Medications Care Teams Team MemberRelationshipSpecialtyStart [place] [id number] [facility] [place] [address] PCP - General03/12/22documented as of this encounter
--- OUTSIDE RECORDS SUMMARY | 2025-07-08 09:57 | XMS_ITS | Clinical Summary ---
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 Patient reported fatigue, dizziness and poor appetite NvcqblirmzObzotDauhki19/23/2022oxycyclineHives,IaywVdtxnu87/23/2022Iodinated Contrast MediaOther (see comments)Low07/01/2019 Avoid due to abnormality of right kidney. LevofloxacinHives,Other (see comments)Zrukyn5504/07/2014 Broaching Machine Set Up Operator instructed pt. not to take, may prolong the QT. LisinoprilOther (see comments)Low02/01/2014 20 mg dose MorphineOther (see comments)High12/27/2007 Hallucinations Shellfish Protein-Containing Drug HfrggqptPmpqyQrbcdn44/23/2022ulfanilamideRash Low03/04/2022 Medications MedicationSigDispense QuantityRefillsLast FilledStart DateEnd DateStatus sertraline (ZOLOFT) 50 MG tablet Take 1.5 tablets by mouth 1 (one) time each day in the vfticsg0505/07/2023ctive busPIRone (BUSPAR) 15 MG tablet TAKE 1.5 TABS (22.5MG) BY MOUTH IN THE AM AND TAKE 1 TAB (15MG) BY MOUTH AT JYPHKLH8105/07/2023ctive isosorbide mononitrate (IMDUR) 120 MG 24 hr tablet Take 1 tablet by mouth 1 (one) time each day04/27/2023ctive rosuvastatin (CRESTOR) 40 MG tablet Take 0.5 tablets by mouth at bed time04/27/2023ctive losartan (COZAAR) 25 MG tablet Take 1 tablet by mouth in the morning.04/27/2023ctive torsemide (DEMADEX) 20 MG tablet Take 1 tablet by mouth 1 (one) time each day04/27/2023ctive levothyroxine (SYNTHROID, LEVOTHROID) 100 MCG tablet Take 1 tablet by mouth 1 (one) time each day before zmagisiis11/29/2023ctive lansoprazole (PREVACID) [address] capsule Take 1 capsule by mouth 1 (one) time each day Before a meal02/25/2023ctive Dapagliflozin Propanediol 10 MG tablet Take 1 tablet by mouth in the morning.12/19/2022ctive spironolactone (ALDACTONE) 25 MG tablet Take 1 tablet by mouth 1 (one) time each day in the idwdeau5812/18/2022ctive metoprolol succinate XL (TOPROL XL) 50 MG 24 hr tablet Take 1 tablet by mouth in the morning.12/18/2022ctive anastrozole (ARIMIDEX) 1 MG chemo tablet Take 1 tablet by mouth in the morning.12/18/2022ctive allopurinol (ZYLOPRIM) 100 MG tablet Take 2 tablets by mouth in the morning.11/17/2022ctive loratadine (CLARITIN) 10 MG tablet Take 1 tablet by mouth 1 (one) time each day if azvcvp3610/24/2022ctive albuterol HFA (PROVENTIL HFA;VENTOLIN HFA) 108 (90 Base) MCG/ACT inhaler Inhale 2 puffs 4 (four) times a day if wltcmm7210/21/2022ctive nitroglycerin (NITROSTAT) 0.[address] 1 tablet under the tongue every 5 (five) minutes if needed for chest pain Max 3/15 min.08/05/2022ctive acetaminophen (TYLENOL) 325 MG tablet Take 2 tablets by mouth every 6 (six) hours if needed Max acetaminophen dose: 4000mg in 24 hrs.11/20/2021ctive Calcium Carbonate-Vitamin D 600-5 MG-MCG capsule Take 2 tablets by mouth in the morning.03/07/2020Active famotidine (PEPCID) 20 MG tablet Take 1 tablet by mouth in the morning and 1 tablet in the evening.10/24/2019 Active EPINEPHrine (EpiPen 2-Alex) 0.3 MG/0.3ML injection syringe Inject 0.3 mg into the shoulder, thigh, or buttocks if ukpian0803/04/2016Active Multiple Vitamins-Minerals (PreserVision AREDS 2) capsule Take 1 capsule by mouth in the morning and 1 capsule in the evening.Active Saline [place] 0.65 % solution Administer 1 spray into affected nostril(s) in the morning.Active simethicone (MYLICON,GAS-X) 180 MG capsule Take 1 capsule by mouth 4 (four) times a day if needed for flatulence Max dose: 500 mg per 24 hrs.Active apixaban (ELIQUIS) 5 MG tablet Take 1 tablet by mouth in the morning and 1 tablet in the evening.04/15/2024 Active clopidogrel (PLAVIX) 75 MG tablet Take 1 tablet by mouth in the morning.04/15/2024ctive fenofibrate micronized (LOFIBRA) 67 MG capsule Take 1 capsule by mouth in the morning.05/30/2024ctive cholecalciferol (VITAMIN D-3) 25 MCG (1000 UT) capsule Take 1 capsule by mouth 1 (one) time each dayActive cyanocobalamin (VITAMIN B-12) 250 MCG tablet Take 1,000 mcg by mouth in the morning.Active Melatonin 1 MG chewable tablet Chew 1 mg in the morning.Active Active Problems ProblemNoted DateDiagnosed DateChronic kidney disease stage 3B07/20/2023 Hypertensive chronic kidney disease with stage 1 through stage 4 chronic kidney disease, or unspecified chronic kidney tvdyfet0207/20/2023Hypo-osmolality and mzynbyoqqxgt07/08/2024 Encounters DateTypeDepartmentCare MftoJwdonaugcmx08/20/2025Orders Only [facility] [address] [address] [place] [address] Tremayne Diaz MD Stage 3a chronic kidney disease (HCC)06/05/2025Documentation Only [facility] [address] [facility] [address] Tremayne Diaz MD from Last 3 Months Immunizations ImmunizationAdministration DatesNext DueInfluenza Vaccine, Quadrivalent, Dcwessjzvd00/18/2023,03/18/2022,04/17/2021Moderna XGEP-XVL-800/20/2023, 10/30/2021,05/04/2021neumococcal Conjugate 13-Pdrcgq3107/31/2015 Family History Medical HistoryRelationCommentsCancerBrother 1DementiaBrother 1No Known Problems Brother 2GoutFatherHeart diseaseFatherHypertensionFatherHeart diseaseFather's BrotherHeart diseaseFather's SisterHeart diseaseMaternal GrandfatherHeart diseaseMaternal GrandmotherHeart diseaseMotherHypertensionMotherKidney disease MotherHeart diseaseMother's BrotherHeart diseaseMother's SisterHeart disease Paternal GrandfatherHeart diseasePaternal GrandmotherRelationStatusComments Brother 1AliveBrother 2AliveFatherDeceasedFather's BrotherDeceasedFather's SisterDeceasedMaternal GrandfatherDeceasedMaternal GrandmotherDeceasedMother DeceasedMother's BrotherDeceasedMother's SisterDeceasedPaternal Grandfather DeceasedPaternal GrandmotherDeceased Social History Tobacco UseTypesPacks/DayYears UsedDateSmoking Tobacco: [id number] - 2000Smokeless Tobacco: Never Tobacco Cessation:Counseling Given: Not Answered Alcohol UseStandard Drinks/WeekCommentsNot Currently0 (1 standard drink = 0.6 oz pure alcohol)CommentsUnknownSex and Gender InformationValueDate Recorded Sex Assigned at BirthNot on fileLegal OliOdcgea36/25/2023 3:42 PM EDTGender IdentityNot on fileSexual OrientationNot on file Last Filed Vital Signs Vital SignReadingTime TakenCommentsBlood Eiwkvdks025/54007/26/2024 3:21 PM SOLICITING FREIGHT AGENT Rnwuj303107/26/2024 3:21 PM CSTTemperature--Respiratory Rate--Oxygen Saturation-- Inhaled Oxygen Concentration--Npouki86.2 kg (157 lb)07/26/2024 3:21 PM CSTHeight 154.9 cm (5' 1)07/26/2024 3:21 PM CSTBody Mass Index29.66007/26/2024 3:21 PM SOLICITING FREIGHT AGENT Plan of Treatment DateTypeDepartmentCare Team (Latest Contact Info)Kpuqrvkyfig14/27/2026 2:30 PM CSTOffice Visit [facility] [address] [place] [phone] Tremayne Diaz MD [address] [place] [address] Health MaintenanceDue DateLast DoneCommentsInfluenza Vaccine (#1)03/13/2025 04/20/2024, 03/30/2023, 07/13/2022, Additional history existsPneumococcal Vaccine: 50+ KcuilKiqicuegu38/19/2016, 04/23/2015, 12/12/2013, Additional history existsHepatitis B VaccineAged OutNo longer eligible based on patient's age to complete this topic Insurance Care Teams Team MemberRelationshipSpecialtyStart [place] [address] [place] [address] PCP - GeneralFamily Kkgnmmev47/25/23
--- OUTSIDE RECORDS SUMMARY | 2025-07-08 09:57 | XMS_ITS | CCD ---
Author Name Interface, N5Tvcpman lity Address [address] [place] [address] [facility] Address [facility] [address] [address] Reason for Visit Social History Date Name Value 03/11/2025 Sex Female
--- OUTSIDE RECORDS SUMMARY | 2025-07-08 09:57 | XMS_ITS | Encounter Summary ---
Author Organization [facility] [place] [place] Address [address] [place] [address] Phone Care Team Providers Care Spiral Gear Generator Name Role Phone Judah Yadav MD Primary Care Provider [phone] Encounter Details DateTypeDepartmentCare Team (Latest Contact Info)Flsqbavacti29/24/2025 Documentation Only [facility] [place] [address] [place] [address] Tremayne Diaz MD [address] [place] [address] Social History Tobacco UseTypesPacks/DayYears UsedDateSmoking Tobacco: [id number] - 2000Smokeless Tobacco: NeverAlcohol UseStandard Drinks/WeekCommentsNot Currently0 (1 standard drink = 0.6 oz pure alcohol)CommentsUnknownSex and Gender InformationValueDate RecordedSex Assigned at BirthNot on fileLegal MkbKawjuc28/25/2023 3:42 PM EDTGender IdentityNot on fileSexual OrientationNot on filedocumented as of this encounter Plan of Treatment DateTypeDepartmentCare Team (Latest Contact Info)Foqsueabqrm35/27/2026 2:30 PM CSTOffice Visit [facility] [address] [place] [address] Tremayne Diaz MD [address] [place] [address] documented as of this encounter Visit Diagnoses Not on filedocumented in this encounter Care Teams Team MemberRelationshipSpecialtyStart [place] [address] [place] [address] PCP - GeneralFamily Clnfymcp02/25/23documented as of this encounter
--- OUTSIDE RECORDS SUMMARY | 2025-07-08 09:57 | XMS_ITS | Clinical Summary ---
Author Organization [facility] Address [address] [place] [address] Care Team Providers Care Staking Engineer Name Role Phone Judah Yadav MD Primary Care Provider [phone] Allergies Active AllergyReactionsCriticalityNoted DateCommentsChlorthalidoneOther (See Comments)Low03/04/2022 Hypnatremia Contrast DyeOther (See Comments)Low03/04/2022 Avoid due to abnormality of right kidney. CarvedilolOther (See Comments),Dizziness,FfjahiqBwm89/23/2022 And poor appetite. FpybzdrxawLegjiLimrby00/23/2789ZtniecrvgzhZmijzCnumcu82/23/2022LevofloxacinOther (See Comments)Tyjnst1503/04/2022 Shoe Shanker instructed pt. not to take, may prolong the QT. InogwneeqeTrsdsVli62/23/2022Misc. Sulfonamide Containing CompoundsHivesMedium 03/04/2022MorphineOther (See Comments)Lthlte2403/04/2022 Hallucinations Shellfish Protein-Containing Drug SalrylgfIuwesBfbqrd68/23/2022ulfanilamideRash Low03/04/2022 Medications MedicationSigDispense QuantityRefillsLast FilledStart DateEnd DateStatus acetaminophen (TYLENOL) 325 MG tablet Take 650 mg by mouth every 6 hours as needed for mild painActive allopurinol (ZYLOPRIM) 100 MG tablet Take 200 mg by mouth dailyActive amLODIPine (NORVASC) 10 MG tablet Take 10 mg by mouth dailyActive anastrozole (ARIMIDEX) 1 MG tablet Take 1 mg by mouth dailyActive aspirin (ASA) 81 MG chewable tablet Take 81 mg by mouth daily (with breakfast)Active Blood Pressure KIT Indications:XLActive busPIRone (BUSPAR) 15 MG tablet Take 15 mg by mouth 2 times dailyActive CALCIUM-CHOLECALCIFEROL PO Indications:600mg -200 mg capsulesTake 2 capsules by mouth dailyActive cephALEXin (KEFLEX) 500 MG capsule Indications:Takes 4 (500mg) capsules prior to a procedure.Take 2,000 mg by mouth once as neededActive Vitamin D (Cholecalciferol) 25 MCG (1000 UT) TABS Take 1 tablet by mouth dailyActive EPINEPHrine (ANY BX GENERIC EQUIV) 0.3 MG/0.3ML injection 2-pack Inject 0.3 mg into the muscle once as needed for anaphylaxisActive Famotidine (PEPCID PO) Take 415 mg by mouth 2 times dailyActive fenofibrate (TRICOR) 145 MG tablet Take 145 mg by mouth daily (with breakfast)Active isosorbide mononitrate CR (IMDUR) 120 MG 24 HR ER tablet Take 120 mg by mouth daily before breakfastActive Probiotic Product (PROBIOTIC-10 PO) Take 1 capsule by mouth dailyActive Lansoprazole (PREVACID PO) Take 30 mg by mouth every morning (before breakfast)Active levothyroxine (SYNTHROID/LEVOTHROID) 100 MCG tablet Take 112 mcg by mouth daily before breakfastActive loratadine (CLARITIN) 10 MG tablet Take 10 mg by mouth dailyActive LORazepam (ATIVAN) 0.5 MG tablet Indications:Before a Dental Procedure.Take by mouth once as needed for anxiety Active losartan (COZAAR) 100 MG tablet Take 100 mg by mouth dailyActive metoprolol succinate ER (TOPROL XL) 50 MG 24 hr tablet Take 50 mg by mouth dailyActive nitroGLYcerin (NITROSTAT) 0.[address] 0.4 mg under the tongue every 5 minutes as needed for chest pain For chest pain place 1 tablet under the tongue every 5 minutes for 3 doses. If symptoms persist 5 minutes after 1st dose call 911.Active ondansetron (ZOFRAN) 4 MG tablet Take by mouth every 8 hours as needed for nauseaActive pramoxine-HC (PRAMOSONE) 1-2.5 % external cream Indications:Use for up to [address] rect[address] 3 times daily as needed for itchingActive prasugrel (EFFIENT) 5 MG TABS tablet Indications:hold for 10 days. Resume on 03/21.Take 5 mg by mouth every morning Active rosuvastatin (CRESTOR) 40 MG tablet Take 40 mg by mouth At BedtimeActive sertraline (ZOLOFT) 50 MG tablet Take 50 mg by mouth dailyActive spironolactone (ALDACTONE) 25 MG tablet Take 25 mg by mouth every morningActive Multiple Vitamins-Minerals (PRESERVISION AREDS 2 PO) Take 1 capsule by mouth 2 times dailyActive ELIQUIS ANTICOAGULANT 5 MG tablet Take 5 mg by mouth 2 times daily.Active Active Problems ProblemNoted DateDiagnosed ZyvfFmhyddrrzlyigr25/29/2025History of breast cancer 02/08/2025Insomnia, yohglffslb75/15/2025History of bilateral knee replacement 10/17/2024Paresthesia of left leg10/17/2024Left lower lobe pulmonary nodule 04/04/2024 Overview (06/28/2025): CT 03/27/24 noted again Stable subcentimeter groundglass nodules in the left lower lobe which warrant continued imaging follow-up per the prior recommendations Unstable ubmdlo7304/01/2024cute HFrEF (heart failure with reduced ejection fraction)03/31/2024typical atrial hecgpyw4303/28/2024S/P TAVR (transcatheter aortic valve replacement)10/15/2023 Overview (06/28/2025): Kevin Quinones TFA Severe aortic valve nwkmjidv22/02/2024Normocytic lvyxyr634Cobalamin efmddurnig32/15/2023Sleep related npcetyj4501/28/2023alculus of gallbladder without cholecystitis without xdwcmdjvefq27/18/2023Sensorineural hearing loss (SNHL) of both ears01/21/2023Malignant neoplasm of left breast in female, estrogen receptor kborrazq07/08/2023Stage 3b chronic kidney xptqphp5708/20/2022 Irregular bowel nqmltp973Bilateral pafwvarsmwks17/18/2022Coronary wahbswqmttmhhma64/16/7726Nnfbzikmklk47/25/4410Nxexcjpdlu76/25/2019Osteopenia of necks of both hjsjvp8608/15/2018 Overview (06/28/2025): DEXA 08/13/2018 osteopenia. Repeat in 3-5 years. Basic bone health recs. Lumbar Spine L1-L4 BMD: 1.239 g/cm sq; T-score 0.5; Z-score 1.5 WHO classification: Normal Mean Bilateral Total Hip BMD: 0.837 g/cm sq; T-score -1.4; Z-score -0.1 WHO classification: Osteopenia. Mean Bilateral Femoral Neck BMD: 0.864 g/cm sq; T-score -1.3; Z-score 1.2 WHO classification: Osteopenia. Fzwdjax4506/29/2018NSTEMI (non-ST elevated myocardial infarction)06/02/2018Acute on chronic diastolic (congestive) heart jnoaslr8403/16/2018SSS (sick sinus syndrome)03/16/2018Essential rawvecdzlupn51/24/2018GERD (gastroesophageal reflux disease)03/05/2018Regular astigmatism of both eyes09/21/2017Recurrent major depressive disorder, in full iqkxwglls91/19/2017Stenosis of right carotid artery without cerebral xywsokieom60/17/2017AMD (age-related macular degeneration), ozzthqwcz99/10/2017Arthralgia of temporomandibular joint02/05/2016Articular disc disorder of left temporomandibular joint02/05/2016 Overview (06/28/2025): Left TMJ disc displacement with reduction, Possible DJD per Panoramic imaging from 2017 Peripheral vascular disease, ddenoczkxan43/28/2016PND (post-nasal drip) 02/28/2014PTSD (post-traumatic stress disorder)12/07/2012Mitral regurgitation 02/24/2012Neck pain, ytvfwhz6307/29/2011Hypoplasia of one xxmikk3704/23/2011Cervical spine gqfohtnup23/13/2011Intractable ktutftag70/12/2011Obsessive-compulsive sfatlfdn26/24/4721Hnvlkyqotelz82/04/2008 Overview (06/28/2025): Rosuvastatin and fenofibrate Other specified chronic obstructive pulmonary evzskqi5412/15/2007 Overview (06/28/2025): Severity unknown Acquired uusqbyfhplzysh07/17/2006 Overview (06/28/2025): Levothyroxine. TSH (uIU/mL) Date Value 09/21/2014 2.21 Dutnvjdocbsutm93/17/2006 Encounters DateTypeDepartmentCare PjmeWjtmdcrgmgz13/17/2025 9:10 AM CELL TUBER HAND - 06/28/2025 11:25 AM CSTEmerhelena Alston [facility] [address] [place] [phone] Diaz Chowdhury MD Foot injury, left, initial encounter (Primary Dx); Acute left ankle pain; Acute pain of left knee Discharge Disposition: Home or Self Care06/28/2025Travelfrom Last 3 Months Social History Tobacco UseTypesPacks/DayYears UsedDateSmoking Tobacco: FormerCigarettes Smokeless Tobacco: NeverAlcohol UseStandard Drinks/WeekCommentsNot Currently0 (1 standard drink = 0.6 oz pure alcohol)Adolescent EducationAnswerDate Recorded Getting School Help NeededNot on file3CommentsNoSex and Gender InformationValueDate RecordedSex Assigned at BirthNot on fileLegal SexFemale 05/16/2012 3:14 AM CSTGender IdentityNot on fileSexual OrientationNot on file Last Filed Vital Signs Vital SignReadingTime TakenCommentsBlood Hxaxhjlm533/8706/28/2025 8:21 AM CELL TUBER HAND Blxfc208106/28/2025 8:21 AM WJIDsnyzpldjof92.1 ??C (96.9 ??F)06/28/2025 8:21 AM CSTRespiratory Gsti222408/29/2024 8:21 AM CSTOxygen Yyiueyngtt44%06/28/2025 8:22 AM CSTInhaled Oxygen Concentration--Llzkxy61.5 kg (162 lb)06/28/2025 8:21 AM CELL TUBER HAND Gzlxqv987 cm (5' 0.63)03/12/2022 5:49 AM CDTBody Mass Index30.98003/12/2022 5:49 AM CDT Plan of Treatment Health MaintenanceDue DateLast DoneCommentsADVANCE CARE LHQMURCT1944ALT 4ANNUAL REVIEW OF HM CKRLEK364BMP4CBC1944 DEPRESSION ACTION PLAN1944GAD KPRAJJOJEF1944HF ACTION PLAN1944 LIPID1944RDJBFLLPUOAT69/31/6111ULCVXDDCCDL19/31/8322VQFUGQGEYX1944 PHQ-90 1944TSH W/FREE T4 EKXUGW63 1944URIC ACID1944LK PHOS 02/09/19450919WVZEEAUDEB29/31/6690FTJNHVZMSB64/31/1945FALL RISK CTFRWUZDDH42/31/2009 MEDICARE ANNUAL WELLNESS VISIT, 06/26/2006COVID-19 VACCINE ( season), 04/20/2024, 05/01/2023, Additional history existsDTAP/TDAP/TD VACCINE (3 - Td or Tdap)/12/2022, 05/19/2012, 05/05/2006DEXAZOSTER IJGFOEBQecbpvztm12/26/2020, 02/28/2020, 05/13/20101020TOGPMAQCGKDGjiybgpaxntn96/31/2022, 2COLORECTAL CANCER SCREENINGDiscontinuedRSV MONOCLONAL XZCPDBKUGuzaohkrjsmk38/01/2023RSV RGURTGFYurhwwtct52/06/2023LUNG CANCER RJOCMAGZPEmaomeyeqtwp77/15/2024, 01/28/2017, 11/18/2013PNEUMOCOCCAL VACCINE 50+ BTIQHYpiqmpjyn55/26/2024, 07/31/2015, 04/23/2015, Additional history existsINFLUENZA VACCINECompleted 06/05/2025, 04/20/2024, 03/30/2023, Additional history existsCT COLONOGRAPHY DiscontinuedFITDiscontinuedFLEX SIGDiscontinuedHPV VACCINE (No Doses Required) CompletedMENINGITIS VACCINEAged OutNo longer eligible based on patient's age to complete this topicsDNA (Cologuard)Discontinued Procedures Procedure NamePriorityDate/TimeAssociated DiagnosisCommentsXR KNEE LEFT 3 VIEWS STAT108/29/2024 10:44 AM CELL TUBER HAND XR ANKLE LEFT G/E 3 BABJHJRRL00/17/2025 10:43 AM CELL TUBER HAND XR FOOT LEFT G/E 3 PFSEICODN98/17/2025 8:44 AM CELL TUBER HAND FBGMBJVULADAwoclpl03/31/2022 7:24 AM CDT from Last 3 Months or Most Recently Relevant to Health Maintenance Results * XR Knee Left 3 Views (06/28/2025 10:44 AM CELL TUBER HAND)Anatomical RegionLaterality ModalityThigh, Knee, LegLeftComputed RadiographySpecimen (Source)Anatomical Location / LateralityCollection Method / VolumeCollection TimeReceived Time 06/28/2025 10:44 AM CELL TUBER HAND Impressions 06/28/2025 10:54 AM CELL TUBER HAND IMPRESSION: There is a left total knee arthroplasty. Excellent position and alignment of components. There is no evidence of complication or periprosthetic fracture. No significant effusion. Narrative 06/28/2025 10:54 AM CELL TUBER HAND EXAM: XR KNEE LEFT 3 VIEWS LOCATION: [facility] DATE: 06/28/2025 INDICATION: Fall, ecchymoses, tender to palpation in lateral joint line. COMPARISON: None. Procedure Note Yariel Bunn MD - 06/28/2025 EXAM: XR KNEE LEFT 3 VIEWS LOCATION: [facility] DATE: 06/28/2025 INDICATION: Fall, ecchymoses, tender to palpation in lateral joint line. COMPARISON: None. IMPRESSION: There is a left total knee arthroplasty. Excellent position and alignmentof components. There is no evidence of complication or periprostheticfracture. No significant effusion. Authorizing ProviderResult TypeResult StatusHallie Tamela [facility] DIAGNOSTIC IMAGING ORDERABLESFinal Result * XR Ankle Left G/E 3 Views (06/28/2025 10:43 AM CELL TUBER HAND)Anatomical RegionLaterality ModalityLeg, Ankle, FootLeftComputed RadiographySpecimen (Source)Anatomical Location / LateralityCollection Method / VolumeCollection TimeReceived Time 06/28/2025 10:43 AM CELL TUBER HAND Impressions 06/28/2025 10:54 AM CELL TUBER HAND IMPRESSION: 1. Old healed distal fibular fracture [...] mortise is symmetric. Narrative 06/28/2025 10:54 AM CELL TUBER HAND EXAM: XR ANKLE LEFT G/E 3 VIEWS LOCATION: [facility] DATE: 06/28/2025 INDICATION: Fall, tender to palpation of lateral malleolus. COMPARISON: None. Procedure Note Yariel Bunn MD - 06/28/2025 EXAM: XR ANKLE LEFT G/E 3 VIEWS LOCATION: [facility] DATE: 06/28/2025 INDICATION: Fall, tender to palpation [...] is symmetric. Authorizing ProviderResult TypeResult StatusHallie Tamela [facility]ERN[facility]ole DIAGNOSTIC IMAGING ORDERABLESFinal Result * XR Foot Left G/E 3 Views (06/28/2025 8:44 AM CELL TUBER HAND)Anatomical RegionLaterality ModalityFoot, AnkleLeftComputed RadiographySpecimen (Source)Anatomical Location / LateralityCollection Method / VolumeCollection TimeReceived Time 06/28/2025 8:44 AM CELL TUBER HAND Impressions 06/28/2025 8:49 AM CELL TUBER HAND IMPRESSION: No acute fracture. Small plantar and Achilles' heel spurs. Mild degenerative changes throughout the midfoot. Cannulated screw fixation of a healed lateral malleolar fracture. Narrative 06/28/2025 8:49 AM CELL TUBER HAND EXAM: XR FOOT LEFT G/E 3 VIEWS LOCATION: [facility] DATE: 06/28/2025 INDICATION: Foot pain. COMPARISON: None. Procedure Note Maykel Mabry MD - 06/28/2025 EXAM: XR FOOT LEFT G/E 3 VIEWS LOCATION: [facility] DATE: 06/28/2025 INDICATION: Foot pain. COMPARISON: None. IMPRESSION: No acute fracture. Small plantar and Achilles' heel spurs.Mild degenerative changes throughout the midfoot. Cannulated screwfixation of a healed lateral malleolar fracture. Authorizing ProviderResult TypeResult StatusJoradha [facility] DIAGNOSTIC IMAGING ORDERABLESFinal Result * COLONOSCOPY (03/12/2022 7:24 AM CDT)ComponentValueRef RangeTest MethodAnalysis TimePerformed AtPathologist SignatureCOLONOSCOPYGlencoe Regional Health Services Patient Name: Elda Keith ?Procedure Date: 03/12/2022 7:24 AM ? Date of : 1945 ?Admit Type: Outpatient Age: 77 ? Gender: Female Attending MD: MAJO PEREZ MD Total Sedation Time: See anesthesia report. Instrument Name: 255 - Pediatric Colonoscope Procedure: ?Colonoscopy Indications: ?Rectal bleeding Providers: ?MAJO PEREZ MD (Doctor) Referring MD: ? Medicines: ?Monitored Anesthesia Care Complications: ?No immediate complications. Procedure: ?Pre-Anesthesia Assessment: ?- Prior to the procedure, a History and Physical ?was performed, and patient medications and ?allergies were reviewed. The patient is competent. ?The risks and benefits of the procedure and the ?sedation options and risks were discussed with the ?patient. All questions were answered and informed ?consent was obtained. Patient identification and ?proposed procedure were verified by the physician ?and the nurse in the endoscopy suite. Mental Status ?Examination: alert and oriented. Airway ?Examination: normal oropharyngeal airway and neck ?mobility. Respiratory Examination: clear to ?auscultation. CV Examination: normal. Prophylactic ?Antibiotics: The patient does not require ?prophylactic antibiotics. Prior Anticoagulants: The ?patient has taken Effient (prasugrel), last dose ?was 6 days prior to procedure. ASA Grade ?Assessment: II - A patient with mild systemic ?disease. After reviewing the risks and benefits, ?the patient was deemed in satisfactory condition to ?undergo the procedure. The anesthesia plan was to ?use monitored anesthesia care (MAC). Immediately ?prior to administration of medications, the patient ?was re-assessed for adequacy to receive sedatives. ?The heart rate, respiratory rate, oxygen ?saturations, blood pressure, adequacy of pulmonary ?ventilation, and response to care were monitored ?throughout the procedure. The physical status of ?the patient was re-assessed after the procedure. ?After obtaining informed consent, the colonoscope ?was passed under direct vision. Throughout the ?procedure, the patient's blood pressure, pulse, and ?oxygen saturations were monitored continuously. The ?Olympus Pediatric Colonoscope Model # [id number]-HP129U, ?[place] # 255, SN # [id number] was introduced through ?the anus and advanced to 4 cm into the ileum. The ?colonoscopy was performed with ease. The patient ?tolerated the procedure well. The quality of the ?bowel preparation was good. ? Findings: ? The perianal exam findings include internal hemorrhoids that prolapse ? with straining, but require manual replacement into the anal canal ? (Grade III). ? The terminal ileum appeared normal. ? A 3 mm polyp was found in the descending colon. The polyp was sessile. ? The polyp was removed with a cold snare. Resection and retrieval were ? complete. Estimated blood loss was minimal. ? Many small and large-mouthed diverticula were found in the sigmoid ? colon, descending colon, transverse colon and ascending colon. ? Non-bleeding internal hemorrhoids were found during retroflexion. The ? hemorrhoids were moderate. Two bands were successfully placed at the ? right anterior position and the right posterior position. There was no ? bleeding during the procedure. ? The exam was otherwise without abnormality. ? Impression: ? - Internal hemorrhoids that prolapse with ?straining, but require manual replacement into the ?anal canal (Grade III) found on perianal exam. ?- The examined portion of the ileum was normal. ?- One 3 mm polyp in the descending colon, removed ?with a cold snare. Resected and retrieved. ?- Diverticulosis in the sigmoid colon, in the ?descending colon, in the transverse colon and in ?the ascending colon. ?- Non-bleeding internal hemorrhoids. Banded. ?- The examination was otherwise normal. Recommendation: ? - Await pathology results. ?- Resume Effient (prasugrel) at prior dose in 10 ?days. Refer to managing physician for further ?adjustment of therapy. ?- Use fiber, for example Citrucel, Fibercon, Konsyl ?or Metamucil. ? Procedure Code(s): ? --- Professional --- ? 57383, Colonoscopy, flexible; with removal of tumor(s), polyp(s), or ? other lesion(s) by snare technique ? 44535, Colonoscopy, flexible; with band ligation(s) (eg, hemorrhoids) Diagnosis Code(s): ? --- Professional --- ? K64.2, Third degree hemorrhoids ? K63.5, Polyp of colon ? K62.5, Hemorrhage of anus and rectum ? K57.30, Diverticulosis of large intestine without perforation or abscess ? without bleeding CPT copyright 2020 [employer] [place] [employer]. All rights reserved. The codes documented in this report are preliminary and upon pillowcase turner review may be revised to meet current compliance requirements. MAJO PEREZ MD 03/12/2022 8:19:04 AM I was physically present for the entire viewing portion of the exam. MAJO PEREZ MD Number of Addenda: 0 Note Initiated On: 03/12/2022 7:24 AM MRN: ?[id number] Procedure Date: ? 03/12/2022 7:24:50 AM Scope Withdrawal Time: 0 hours 10 minutes 16 seconds Total Procedure Duration: 0 hours 25 minutes 50 seconds Estimated Blood Loss: ? Scope In: 7:39:49 AM Scope Out: 8:05:39 AMRADIOLOGY RESULTSSpecimen (Source)Anatomical Location / LateralityCollection Method / VolumeCollection TimeReceived Time03/12/2022 7:24 AM CDT Narrative Authorizing ProviderResult TypeResult StatusSarasean Perez MDPROCEDURES Edited Result - FinalPerforming OrganizationAddressCity/State/ZIP CodePhone Number RADIOLOGY RESULTS from Last 3 Months or Most Recently Relevant to Health Maintenance Insurance * Guarantor: Elda Keith EAccount TypeRelation to PatientDate of BirthPhone Billing AddressPersonal/CnszrzXjyp1945 [address] [facility] [address] [place] [address] Care Teams Team MemberRelationshipSpecialtyStart [place] [address] [place] [address] PCP - General03/12/22
--- OUTSIDE RECORDS SUMMARY | 2025-07-08 09:57 | XMS_ITS | Encounter Summary ---
Author Organization [facility] Address [address] [place] [address] Phone Care Team Providers Care Medical Record Consultant Name Role Phone Judah Yadav MD Primary Care Provider [phone] Encounter Details DateTypeDepartmentCare Team (Latest Contact Info)Htxpngjwdtu29/20/2025Orders Only [facility] [address] [place] [phone] Tremayne Diaz MD [address] [place] [address] Stage 3a chronic kidney disease (HCC) Social History Tobacco UseTypesPacks/DayYears UsedDateSmoking Tobacco: [id number] - 2001Smokeless Tobacco: NeverAlcohol UseStandard Drinks/WeekCommentsNot Currently0 (1 standard drink = 0.6 oz pure alcohol)CommentsUnknownSex and Gender InformationValueDate RecordedSex Assigned at BirthNot on fileLegal GbuUamyzi73/25/2023 3:42 PM EDTGender IdentityNot on fileSexual OrientationNot on filedocumented as of this encounter Plan of Treatment DateTypeDepartmentCare Team (Latest Contact Info)Gftbrxisrkt36/27/2026 2:30 PM CSTOffice Visit [facility] [address] [place] [phone] Tremayne Diaz MD [address] [facility] [address] [place] [address] documented as of this encounter Visit Diagnoses Diagnosis Stage 3a chronic kidney disease (HCC) documented in this encounter Care Teams Team MemberRelationshipSpecialtyStart [place] [address] [place] [address] PCP - GeneralFamily Zgprklcs00/25/23documented as of this encounter
--- OUTSIDE RECORDS SUMMARY | 2025-07-08 09:57 | XMS_ITS | Clinical Summary ---
Author Organization [facility] Address [address] [place] [address] Care Team Providers Care Aerial Crop Duster Name Role Phone Glenn Vee MD Unavailable Becca Connors RN Unavailable Emmanuelle Tony MD Unavailable Treamyne Diaz MD Unavailable Ray Almaguer MD Unavailable [phone] Junior Boswell Unavailable + Jay Aranda MD Unavailable Judah Yadav MD Primary Care Provider [phone] Leeann Granado [facility] C[facility] ADMINISTRATOR Unavailable [phone] Malissa Forrest PsyD, LP Unavailable [phone] Albert Kee MD Unavailable Iris Chapman RN Unavailable [phone] Rosana Hamilton [facility] C[facility] ADMINISTRATOR Unavailable Brandie Lloyd PharmD Unavailable Allergies Active AllergyReactionsCriticalityNoted DateCommentsCarvedilolOther - Describe In Comment WinqcNig76/10/2018 Patient reported fatigue, dizziness and poor appetite And poor appetite. Patient reported fatigue, dizziness and poor appetite DodlyrctzxdaqwJvkqynvtlviaUln33/13/2018DiflunisalHives,Other - Describe In Comment ZfgcgYon93/25/2025 diflunisal DoxycyclineHives,ZcwcXmhcsg56/23/2022Iodinated Contrast MediaOther - Describe In Comment WejavGgj98/20/2019 Avoid due to abnormality of right kidney. LevofloxacinOther - Describe In Comment Field,CopynMyezpu75/26/2014 Patients heart doctor informed her she can't be taking it. ??(QT prolongation?) Career Agent instructed pt. not to take, may prolong the QT. LisinoprilCough,Other - Describe In Comment ZkugoLke67/23/2014 20 mg dose MorphineHallucinations,Other - Describe In Comment WrrwiJjjk80/16/2008 Hallucinations Shellfish Containing ProductsHivesMediumSulfa (Sulfonamide Antibiotics)Hives, Rash08/12/2024 Medications MedicationSigDispense QuantityRefillsLast FilledStart DateEnd DateStatus EPINEPHrine (EPIPEN) 0.3 mg/0.3 mL injection Indications:patient at risk of anaphylaxisInject 0.3 mg intramuscular one time if needed for Allergic Reaction for up to 1 dose. 2 Each Active vit C/E/Zn/coppr/lutein/zeaxan (PRESERVISION AREDS-2 ORAL) Indications:eye healthTake 1 capsule by mouth 2 times daily.Active Calcium-Cholecalciferol, D3, (CALCIUM 600 + D,3,) 600 mg calcium- 200 unit cap Indications:post-menopausal osteoporosis preventionTake 2 tablets by mouth once daily.Active nitroglycerin (NITROSTAT) 0.4 mg sublingual tablet Indications:acute episode of anginal painTAKE 1 TAB UNDER TONGUE EVERY 5MIN NEEDED CHEST PAIN MAX 3/15MIN. IF >24 DOSES/30D, DR TO AUTHORIZE 25 Tablet ctive loratadine (CLARITIN) 10 mg tablet Indications:allergic rhinitisTake 1 Tablet (10 mg) by mouth once daily if needed for Allergy Symptoms.ctive cyanocobalamin (VITAMIN B12) as half tablet Indications:B12 deficiencyTake 1,000 mcg by mouth once daily.Active melatonin 1 mg chew Indications:insomniaChew 1 mg by mouth at bedtime, may repeat once.Active acetaminophen (TYLENOL EXTRA STRGTH) 500 mg tablet Indications:Status post joint replacementTake 2 Tablets (1,000 mg) by mouth every 6 hours if needed for Pain. Max acetaminophen dose: 4000mgin 24 hrs. 100 Tablet 4Active lidocaine 4 % topical patch Apply 1 Patch on dry, clean, hairless skin once daily if needed for Pain (neck pain). Apply to intact skin to cover most painful area for max 12hr per 24hr period.5Active allopurinoL (ZYLOPRIM) 100 mg tablet Indications:prevention of acute gout attackTake 2 Tablets (200 mg) by mouth once daily. 180 Tablet 5Active dapagliflozin propanediol (Farxiga) 10 mg tablet Indications:chronic heart failureTake 1 Tablet (10 mg) by mouth once daily. 90 Tablet 5Active rosuvastatin (CRESTOR) 20 mg tablet Indications:DyslipidemiaTake 1 Tablet (20 mg) by mouth at bedtime. 90 Tablet 5Active cephalexin 500 mg capsule Indications:PROPHYLAXISTake 1 Capsule (500 mg) by mouth one time if needed (dental procedures). 4 Capsule 5Active Additional Information Patient not taking.Reason: duplicate, Reported on 06/06/2025 nebulizers [facility] Indications:Chronic cough,COPD exacerbation (HC)As directed. 1 Each 5Active albuterol 0.083% (2.5 mg/3 mL) neb solution Indications:Chronic diastolic heart failure (HC),Chronic coughInhale 3 mL (2.5 mg) via a nebulizer every 4 hours if needed for Shortness Of Breath. 75 mL 5Active Simethicone (Phazyme) 180 mg capsule Take 180 mg by mouth once daily if needed for Flatulence. Max dose: 500 mg per 24 hrsActive albuterol HFA (PRO-AIR; VENTOLIN; PROVENTIL) 90 mcg/actuation inhaler Indications:bronchospasm preventionINHALE 2 PUFFS BY MOUTH 4 TIMES DAILY IF NEEDED FOR WHEEZING OR SHORTNESS OF BREATH 1ST CHOICE. 18 Each 5Active metoprolol succinate (TOPROL XL) 25 mg Sustained-Release tablet Indications:Atrial flutter, unspecified type (HC)Take 3 Tablets (75 mg) by mouth two times daily. 540 Tablet 5Active torsemide (DEMADEX) 20 mg tablet Indications:Atrial flutter, unspecified type (HC)Take 1 Tablet (20 mg) by mouth once daily. 90 Tablet 5Active calcium carbonate-cholecalciferol (600mg-200 units) (CALTRATE-600 + VIT D) tablet Indications:Osteopenia of necks of both femursTAKE 2 TABS BY MOUTH ONCE DAILY 180 Tablet 5Active ferrous sulfate 325 mg delayed release tablet Indications:Iron deficiency anemia, unspecified iron deficiency anemia typeTake 1 Tablet (325 mg) by mouth once daily with a meal. 90 Tablet 5Active rivaroxaban (XARELTO) 15 mg tab tablet Indications:prevent thromboembolism in chronic atrial fibrillationTake 1 Tablet (15 mg) by mouth once daily with evening meal. 90 Tablet 5Active Cholecalciferol (Vitamin D3) (Vitamin D-3) 400 unit capsule Indications:Osteopenia of necks of both femursTake 1 Capsule (400 units) by mouth once daily. 90 Capsule 5Active clopidogreL (PLAVIX) 75 mg tablet Indications:Coronary artery disease, unspecified vessel or lesion type, unspecified whether angina present, unspecified whether venetie ira or transplanted heartTake 1 Tablet (75 mg) by mouth once daily. 90 Tablet 5Active amoxicillin 500 mg tablet Indications:PROPHYLAXISTake 4 Tablets (2,000 mg) by mouth one time if needed (dental prophylaxis) for up to 3 doses. 4 Tablet 5Active levothyroxine (SYNTHROID) 125 mcg tablet Indications:Hypothyroidism, unspecified typeTake 1 Tablet (125 mcg) by mouth before breakfast. 90 Tablet 5Active famotidine (PEPCID) 20 mg tablet Indications:Gastroesophageal reflux disease, unspecified whether esophagitis presentTake 1 Tablet (20 mg) by mouth two times daily. 180 Tablet 5Active spironolactone 25 mg tablet Indications:hypertension,peripheral edema due to chronic heart failureTake 1 Tablet (25 mg) by mouth once daily in the morning. 90 Tablet 5Active isosorbide mononitrate SR (IMDUR) 120 mg Sustained-Release tablet Indications:prevention of anginal pain in coronary artery diseaseTake 1 Tablet (120 mg) by mouth once daily before a meal. 90 Tablet 5Active losartan (COZAAR) 25 mg tablet Indications:Coronary artery disease involving venetie ira coronary artery of venetie ira heart with angina pectorisTake 0.5 Tablets (12.5 mg) by mouth once daily. 45 Tablet 5Active busPIRone (BUSPAR) 15 mg tablet Indications:generalized anxiety disorderTake 1 and 1/2 tablets in the morning, and 1 tablet in the evening. 225 Tablet 5Active fenofibrate micronized (LOFIBRA) 67 mg capsule Indications:Mixed hyperlipidemiaTake 1 Capsule (67 mg) by mouth once daily with a meal. 90 Capsule 5Active vit-mineral eye [id number] (PreserVision AREDS-2) capsule Indications:AMD (age-related macular degeneration), bilateralTAKE 1 CAP BY MOUTH TWICE DAILY 60 Capsule 5Active budesonide (PULMiCORT) 1 mg/2 mL neb suspension Indications:Chronic bronchitis, unspecified chronic bronchitis type (HC)INHALE 1 VIAL VIA NEB TWO TIMES DAILY. 360 mL 5Active sertraline (ZOLOFT) 50 mg tablet Indications:Generalized anxiety disorder,Depression, major, recurrent, mildTAKE 1 AND 1/2 TABLETS BY MOUTH EVERY MORNING 135 Tablet 1115Active triamcinolone (ARISTOCORT; KENALOG) 0.1 % cream Indications:Itchy skin,Itch of skinApply to affected area 3 times a day as needed. 80 g 5Active sertraline (ZOLOFT) 50 mg tablet Indications:Generalized anxiety disorder,Depression, major, recurrent, mildTAKE 1 AND 1/2 TABLETS BY MOUTH EVERY MORNING 135 Tablet /Discontinued(*Availability/Formulary change/Cost of medication) triamcinolone (ARISTOCORT; KENALOG) 0.1 % cream Indications:Itchy skin,Itch of skinApply to affected area 3 times a day as needed.Discontinued(Reorder (E-cancel not sent)) torsemide (DEMADEX) 20 mg tablet Indications:Acute on chronic diastolic (congestive) heart failure (HC)Take 2 Tablets (40 mg) by mouth once daily for 7 days. Take 40 mg, double your typical dosage, for 1 week to see if this helps with breathing and fluid retention. 14 Tablet Expired triamcinolone (ARISTOCORT; KENALOG) 0.1 % cream Indications:Itchy skin,Itch of skinApply to affected area 3 times a day as needed. 80 g Discontinued(Reorder (E-cancel not sent)) Active Problems ProblemNoted DateDiagnosed RkuxCpkefvpmowtxpe75/29/2025History of breast cancer 02/08/2025Insomnia, /15/2025Neck pain, apwdmni5510/17/2024Paresthesia of left leg10/17/2024History of bilateral knee vwkpqbkktmo61/07/2025ute on chronic diastolic (congestive) heart gxvnfdp5607/29/2024Left lower lobe pulmonary ezmfuh5604/04/2024 Overview (04/04/2024): CT 03/27/24 noted again Stable subcentimeter groundglass nodules in the left lower lobe which warrant continued imaging follow-up per the prior recommendations Unstable znuuad5204/01/2024cute HFrEF (heart failure with reduced ejection fraction)03/31/2024typical atrial adslhwt5303/28/2024Fall03/24/2024Osteoarthritis of hip03/23/20245160Yujnhh18/11/2024ecreased range of motion of neck12/01/2023S/P TAVR (23 mm Camilo S3), /10/2023 Overview (10/15/2023): Kevin Quinones TFA Severe aortic valve /02/2024Vitamin B12 ozbayxrgwk39/29/2024Normocytic cybuzg9210/09/2023VD (peripheral vascular disease)10/09/2023History of heart artery stent10/05/2023B12 uxuziorvge88/15/2023Sleep related xwzusyj5701/28/2023 Calculus of gallbladder without cholecystitis without lmoubbyffbc86/18/2023 Sensorineural hearing loss (SNHL) of both ears01/21/2023Malignant neoplasm of left breast in female, estrogen receptor wclbefwq88/08/2023oronary artery disease involving venetie ira coronary artery of venetie ira heart without angina pectoris 08/20/2022 Overview (09/29/2023): History of coronary artery bypass graft 3 vessel 2007 History of percutaneous coronary intervention with stents 2008, 2009, 2012 PCI of LM/LCX 2017, patent grafts at that time PCI of LM 2023 Stage 3b chronic kidney qwbvbty3808/20/2022Irregular bowel ncwonf9807/23/2022 10/27/20220907Ftkzkydmahhq62/11/6949Mbimljvljfntba80/07/2022ilateral pseudophakia 09/27/2021hronic renal failure, stage 3a08/16/2020KD (chronic kidney disease) stage 3, GFR 30-59 ml/min05/28/2019CAD (coronary artery disease)05/28/2019 Wrkaxkjvgmb56/25/9754Ckbqsozikv64/25/2019Dry eye syndrome of both eyes10/04/2018 Situational cubnaoc5510/04/2018Osteopenia of necks of both eyxumz3008/15/2018 Overview (08/15/2018): DEXA 08/13/2018 osteopenia. Repeat in 3-5 years. Basic bone health recs. Lumbar Spine L1-L4 BMD: 1.239 g/cm sq; T-score 0.5; Z-score 1.5 WHO classification: Normal Mean Bilateral Total Hip BMD: 0.837 g/cm sq; T-score -1.4; Z-score -0.1 WHO classification: Osteopenia. Mean Bilateral Femoral Neck BMD: 0.864 g/cm sq; T-score -1.3; Z-score 1.2 WHO classification: Osteopenia. Ysgqxhe3306/29/2018Chest pain06/11/2018ACP (advance care planning)06/11/2018 Overview (06/11/2018): Patient has identified Health Care Agent(s): No but call her two daughters Add Health Care Agents: No Patient has Advance Care Plan Documents (Health Care Directive, POLST): Yes Advance Care Plan Documents: Health Care Directive Patient has identified Specific Treatment Preferences: Yes How have preferences been verified: verbal Specific Treatment Preferences: a.) Code Status: CPR/Attempt Resuscitation NSTEMI (non-ST elevated myocardial infarction)06/02/2018Chronic diastolic heart sxamlyw1603/16/2018SSS (sick sinus syndrome) s/p dual chamber cftsnagcn13/04/2018 H/O carotid endarterectomy: bilateral L-2010/R-99299703/16/2018GERD (gastroesophageal reflux disease)03/05/2018Essential wcoeysgdjill74/24/2018 Regular astigmatism of both eyes09/21/2017Recurrent major depressive disorder, in full njjigvxov68/19/2017Stenosis of right carotid artery without cerebral xanbtwhqpm97/17/2017Myofascial pain01/22/2017 Overview (05/01/2023): Masticatory AMD (age-related macular degeneration), ghvwmpnow28/10/2017Family history of grebqcrckb93/08/2017Articular disc disorder of left temporomandibular joint 02/05/2016 Overview (05/01/2023): Left TMJ disc displacement with reduction, Possible DJD per Panoramic imaging from 2018 Claudication in peripheral vascular lxhityh1001/08/2016Generalized anxiety jimxlrse03/23/2015Hiatal mevfbt4811/17/2014Family history of malignant neoplasm of gastrointestinal tract08/01/2014PND (post-nasal drip)02/28/2014OA (osteoarthritis) feet and hand08/30/2013PTSD (post-traumatic stress disorder) 12/07/2012Mitral paitaypnfgipp95/14/2012Neck pain07/29/2011CP (advance care planning)05/02/2011 Overview (05/02/2011): Patient has identified Health Care Agent(s): Yes Add Health Care Agents: Yes Health Care Agent(s): Primary Health Care Agent: Lisa Lepe Lindsey Relationship: daughter [phone] Secondary Health Care Agent: Ashlyn Blake Bauer Relationship: daughter [phone] Patient has Advance Care Plan Documents (Health Care Directive, POLST): Yes Advance Care Plan Documents: Health Care Directive Patient has identified Specific Treatment Preferences: No Specific limits to treatment preferences NOT identified: ASSUME FULL TREATMENT. Hypoplasia of one kidney-Right04/23/2011Cervical spine fwskepyle03/13/2011 Migraine NOS with aura10/22/2010Obsessive-compulsive /24/2010steroid dbfwlbse44/19/2008 Overview (06/30/2008): OD Coronary artery disease involving venetie ira coronary artery of venetie ira heart with angina qtxvjapt44/20/2008 Overview (06/12/2018): CABG 3 vessels 12/13/07. A. Preserved LV systolic function. B. WONG-LAD patent, but with 50% stenosis in distal anastomosis, SVG-OM1 patent, but graft insert to superior branch is chronically occluded, moderate ISR of graft to inferior branch. SVG-RCA has chronic 99% stenosis at proximal anastomosis on coronary angiogram 03/08/2018. C. New 90% stenosis in venetie ira proximal LCX (SVG-OM is occluded distally), now s/p atherectomy and URBAN to venetie ira proximal LCX on 03/08/2018. D. Coronary angiogram unchanged on 06/08/2018. Veqweevholhm35/04/2008 Overview (11/08/2015): Rosuvastatin and fenofibrate Chronic airway obstruction, not elsewhere amfubqhndi52/04/2008 Overview (12/15/2007): Severity unknown Postsurgical aortocoronary bypass gjnuce6312/14/2007 Overview (12/15/2007): Urgent three-vessel coronary artery bypass with midline sternotomy, takedown and preparation of left internal mammary artery, institution of hypothermic cardiopulmonary bypass, harvesting of right greater saphenous vein, three-vessel coronary artery bypass with left internal mammary artery to left anterior descending coronary artery and separate saphenous vein grafts to the first obtuse marginal circumflex and to the distal right coronary artery, left pleural pericardiopexy, placement of temporary right atrioventricular sequential pacemaker, drainage of mediastinum. Other and unspecified disc disorder of lumbar qlyoyx0406/25/2006 Overview (06/25/2006): L4 - 5 URBAN exposure in utero06/25/2006 Overview (06/25/2006): URBAN EXPOSURE Acquired tskpqzhelfjpvj17/17/2006 Overview (11/08/2015): Levothyroxine. TSH (uIU/mL) Date Value 09/21/2014 2.21 Osteoarthrosis, unspecified whether generalized or localized, unspecified site 11/26/2005Gout11/26/2005 Resolved Problems ProblemNoted DateDiagnosed DateResolved DateClosed fracture of fifth lumbar fegyhjmw805Acute on chronic heart failure with preserved ejection fraction (HFpEF)/4Aortic valve moouczad73/29/2024 5Acute coronary kfylsson01/4Acute on chronic diastolic heart blhehww42/4Pneumonia due to COVID-19 virus11/05/2022 3Decompensated heart rnbhwsy57/9549Fzongz51/07/2022 2022Embolism and thrombosis of iliac yiyynj86/Invasive ductal carcinoma of left fahstn04 Cancer Staging: Clinical:Stage IA(cT1b, cN0, cM0, G1, ER+, GA+, HER2-) - Signed by Porfirio Drake MD on 06/10/2019 Pathologic stage from 05/30/2020:Stage Unknown(pT1b, pNX, cM0, G1, ER+, GA+, HER2-) - Signed by Porfirio Drake MD on 05/30/2020 Hematoma of btsdih224AKI (acute kidney injury)06/02/2018 5Chest painHiatal isxjol21 Abdominal painNSTEMI (non-ST elevated myocardial infarction) Hypertensive hwibrzfex92yst of left abehjs475Chest painHypokalemia11/06/2013 11/08/2015Adjustment disorder with mixed anxiety and depressed mood11/03/2013 06/01/2014nxiety state, cuskchdapwq59Ganglion cyst-finger Heart vembxeuzpyjf83Chest pain at rest Bulging discTrochanteric bursitis Transient global jnzbdqu76djustment disorder with ccwufiv17Depressive disorder, not elsewhere fagfkqjfkl11Personal History of Alcoholism now in recovery Acute blood loss qketnn35Hypovolemic shock Overview (05/02/2011): Bleeding from eia ( anterior extraperitoneal space) Non-Q wave wukzqscjqb60CRF (chronic renal failure)04/23/2011 11/08/2015Generalized anxiety imcngkvu37/13/Chest pain, jpbeuejeqpc20Depressive disorder, not elsewhere classified Personal history of pwirbnuvge80Other and unspecified angina jifmenav55Actinic zjexnkosw69/28/2009 11/08/2015Coronary stent lohlmyapp66/09/Coronary stent01/18/2009 03/05/2018Aortic valve myxhfvoma62 Overview (12/12/2008): A. Mild Carotid artery bruitChronic COUGH Postsurgical aortocoronary bypass rqlhoa84Depressive disorder, not elsewhere poeriquute29cute myocardial infarction, unspecified site, episode of care mksbtkzwoyk61 Overview (12/15/2007): Pre operative IABP placed Acute respiratory wcghxwo13 Overview (12/15/2007): Extubated 12/15/07. Gzwmyga26 Overview (11/08/2015): 11/08/2015 Body mass index is 39.22 kg/(m^2). Temporomandibular joint disorders, ogzatzgxffn28Depressive disorder, not elsewhere jzrgjkznto69Lumbago11/26/2005 11/08/2015Other screening ccvoqfoca07 Overview (06/25/2006): BILATERAL, ACR category 1, negative Symptomatic menopausal or female climacteric rvjmae39 Overview (06/25/2006): Benign neoplasm of Overview (06/25/2006): LEFT BIOPSY S/P knee nwjxmlhcuah94/28/2016 Overview (07/09/2009): needs antibiotics prior to dental procedure Acute coronary cmpohlja65/16/2023Nonrheumatic aortic valve crmgyosz66/30/2025 Encounters DateTypeDepartmentCare EmxaFmjzpwhxndd31/26/2025 3:36 PM WINDOW SHADE CUTTER - 07/07/2025 4:55 PM CSTEmergency [facility] [address] [place] [address] Discharge Disposition: Against Medical Advice or Discontinued Care07/07/2025 Xpykiu1207/07/2025Nurse Triage [facility] [address] [place] [address] Judah Yadav MD Back Lhcruc1106/28/2025 10:00 AM CSTPhone Office Visit [facility] [address] [place] [address] Malissa Forrest PsyD, LP Late Cancel Lxxgjvfjbyc42/17/2025Results Follow-Up [facility] [address] [place] [address] Zafar Latif MD Results (Echo)06/28/2025Results Follow-Up [facility] [address] [place] [address] Zafar Latif MD 06/28/20255483Ektjej00/11/2025Telephone [facility] [address] [place] [address] Judah Yadav MD Form (Physical therapy Therapy Plan)06/21/2025 10:00 AM CSTTelemedicine [facility] [place] [address] Malissa Forrest PsyD, LP Vjjwahgdiz20/08/2025Results Follow-Up [facility] [address] [place] [address] Glenn Vee MD 06/19/2025Results Follow-Up [facility] [address] [place] [address] Judah Yadav MD Qvuqusu2506/17/2025Orders Only [facility] [address] [place] [address] Judah Yadav MD 1 scan: (1-Ord) DISPATCH HEALTH, CHEST 2 VIEWS, 5108/17/2024 12:22 PM WINDOW SHADE CUTTER - 06/16/2025 11:59 PM CSTHospital Encounter [address] [address] Chronic diastolic heart failure (HC)06/16/2025 12:17 PM WINDOW SHADE CUTTER - 06/16/2025 12:21 PM CSTHospital Encounter [address] [address] Zafar Latif MD Fitting or adjustment of cardiac /05/2025 12:17 PM WINDOW SHADE CUTTER - 06/16/2025 12:21 PM CSTHospital Encounter [address] [address] Zafar Latif MD Fitting or adjustment of cardiac nclakbhmx73/05/5770Gnmfco50/03/2025 10:00 AM CSTTelemedicine [facility] [address] [place] [address] Malissa Forrest PsyD, [facility]; [facility] Plan06/13/2025Patient Outreach [facility] [address] [facility] [facility] [place] [address] Zeenat Blue, IMMANUEL Focused Care Management (FCM Discontinued)06/08/2025Refill [facility] [address] [place] [address] Judah Yadav MD Refill Request (Sertraline)06/06/2025 11:15 AM CSTOffice Visit [facility] [address] [facility] [place] [address] Judah Yadav MD Breathing Problem (Shortness of breath and cough, she is very hoarse when she talks. Wakes up at night short of breath.)06/06/2025Orders Only [facility] [address] [place] [address] Jessie Chirinos RN <No scans attached>06/06/20259568Gsytnb24/25/2025Nurse Triage [facility] [address] [place] [address] Judah Yadav MD Error-please ygdbljrxz78/21/2025Telephone [facility] [address] [place] [address] Glenn Vee MD Cardiac Pvbeuzepz29/19/2025 10:00 AM CSTTelemedicine [address] [address] Malissa Forrest PsyD, LP Jvgxeqgahj29/19/2025Telephone [facility] [address] [place] [address] Judah Yadav MD Form05/30/2025Telephone [facility] [address] [place] [address] Judah Yadav MD Form (MEDICAL CLEARANCE)05/29/2025Refill [address] [place] [address] Judah Yadav MD Refill Request (Budesonide)05/24/2025 10:00 AM CSTTelemedicine [address] [address] Malissa Forrest PsyD, LP Jmwhhzvqum59/05/2025 10:00 AM CSTTelemedicine [address] [address] Malissa Forrest PsyD, LP Dauuptygbp37/03/2025Orders Only [facility] [address] [facility] [place] [address] Judah Yadav MD <No scans attached>05/15/2025Refill [facility] [address] [place] [address] Judah Yadav MD Refill Request (Preservision Areds-2)05/15/2025Telephone [address] [address] Judah Yadav MD Form (Prescription - Preservision)05/12/2025 10:20 AM CDTOffice Visit [facility] [address] [place] [address] Luther Lopez, OD Eye Exam (CEE)05/12/20254722Hqjnux75/29/2025 10:00 AM CDTTelemedicine [facility] [address] [place] [address] Malissa Forrest PsyD, SHAAN Nnxucithmx80/28/2025Telephone [address] [address] Judah Yadav MD Form05/03/2025 10:00 AM CDTTelemedicine [facility] [address] [place] [address] Malissa Forrest PsyD, SHAAN Ahxvdrizrn12/15/2025 10:00 AM CDTTelemedicine [address] [address] Malissa Forrest PsyD, SHAAN Mbjcadfyqs96/15/2025Telephone [address] [address] Judah Yadav MD FYI ([facility]04/26/2025Refill [facility] [address] [place] [address] Judah Yadav MD Refill Request (Isosorbide Mononitrate Sr, Losartan, Buspirone, Fenofibrate Micronized)04/25/2025 3:00 PM CDTOffice Visit [facility] [address] [facility] [address] [facility] [address] [place] [address] Glenn Vee MD 04/25/20259183Wbfirl05/11/2025Refill [facility] [address] [place] [address] Judah Yadav MD Refill Request (Spironolactone)04/21/2025Telephone [facility] [address] [facility] [address] [facility] [address] [place] [address] Glenn Vee MD Xmgdrec1004/19/2025 10:00 AM CDTTelemedicine [facility] [address] [place] [address] Malissa Forrest PsyD, Jydokghuhw16/08/2025Telephone [facility] [address] [place] [address] Judah Yadav MD Form (PHYSICIAN ORDER)04/18/2025Telephone [facility] [address] [place] [address] Judah Yadav MD Results (Physical copy : 04/14/2025 ( BANKING SERVICES ADVISOR P/U))04/18/2025Telephone [facility] [address] [place] [address] Judah Yadav MD Form (PHYSICIAN ORDER REVIEW)04/18/2025Telephone [facility] [address] [facility] [address] [facility] [address] [place] [address] Stuart Lamas NP Results (Thyroid levels )04/18/2025Telephone [address] [address] Judah Yadav MD Form (PHYSICIAN ORDER)04/17/2025Telephone [address] [address] Judah Yadav MD ijvjdpg11/06/2025Telephone [address] [address] Judah Yadav MD Jgxhfai7204/16/2025Telephone [address] [address] Judah Yadav MD Questions (Endocrinology)04/14/2025 11:35 AM CDTAncillary Procedure [address] [address] 04/14/2025 10:50 AM CDTOffice Visit [address] [address] Judah Yadav MD Shortness Of Breath; Medication Pqysyufrlc24/03/2025Telephone [address] [address] Judah Yadav MD Vbbtmvt3404/14/2025Travelfrom Last 3 Months Immunizations ImmunizationAdministration DatesNext DueAMB Influenza, IIV3 (Age >=3 years)(Flu Clinic Only)05/02/2010,05/29/mb Influenza, Inactivated AIIV4 (Age 65+ Years) Preserv Free04/10/2020COVID-19 VACCINE SPIKEVAX (MODERNA 50MCG/0.5ML) 12YO+ PFS04/20/2024,3COVID-19 vaccine (Moderna 100mcg/0.5mL) PF MDV 05/04/2021,09/15/2020,1COVID-19 vaccine (Moderna 50mcg/0.5mL) 12YO+ BIVALENT PF, MDV12COVID-19 vaccine (Moderna Booster 50mcg/0.25mL) PF, MDV10/30/2021Hepatitis A (Adult)11/20/2006,05/05/2006Influenza A (H1N1), Bymvpyvnoft79/07/2009Influenza A (H1N1), Inactivated (Age >=3 Years)06/18/2009 Influenza Virus, Dvcqhvlwgvi96/01/2023,02/11/2016,04/23/2015,05/27/2005, 05/23/2003Influenza, High-dose Qyxaqtrfuxx42/15/2016,03/21/2015,03/14/2014 Influenza, IIV3 (Age 6-35 mos)04/23/2011Influenza, IIV3 (Age >=3 years) 04/18/2013,04/23/2012,04/23/2011,04/05/2009,05/15/2007,05/22/2006Influenza, IIV4 (=>6mos) MDV107/13/2019,02/11/2016Influenza, Inactivated AIIV4 (Age 65+ Years) Preserv Free03/30/2023,03/18/2022,04/17/2021Influenza, Inactivated IIV3 (Age 65+ Years) Preserv Free07/24/2024(Deferred: - patient reports already getting flu shot at [facility]),04/20/2024,04/14/2019,03/12/2018,04/15/2017Pneumococcal Conj 20- valent (Prevnar 20)4Pneumococcal Poly,23-Valent (Pneumovax)04/23/2015, 12/12/2013,10/16/2008,04/30/1999Pneumococcal conj 13-Valent (Prevnar 13) 07/31/2015RSV, Recombinant ADJ Reconstituted (Arexvy 120MCG/0.5mL)05/18/2023Rsv Unspecified Mab Rhaezjz6007/13/2022Td (Age >=7 Years)05/05/2006Td, Preservative Free (age >= 7 Years)05/05/2006Tdap03/18/2023,05/19/2012Zoster (Shingrix-RZV, recombinant)05/07/2020,02/28/2020Zoster (Zostavax-ZVL, live)05/13/2010 Family History Medical HistoryRelationNameCommentsCancer-prostateBrother 1Mikepos lymph node Coronary artery diseaseBrother 1MikeHypertensionBrother 2DickAnxiety disorder FatherCoronary artery diseaseFatherHeart attackFathers/p QHMBx2DhqovhpKxasme Macular degenerationDiabetesMaternal AuntCancer-breastMotherdied of renal failureCoronary artery diseaseMotherKidney diseaseMotherRelationNameStatus CommentsBrother 1MikeAliveASCVDBrother 2DickAliveHTN, HyperlipidemiaFather (Age 84)Ascvd and PVDMaternal AuntMotherDeceased (Age 84)Renal failure and PVD Social History Tobacco UseTypesPacks/DayYears UsedDateSmoking Tobacco: YtlaxaDsgpdaazdi543 01/10/1971 - 01/10/2001Passive Smoke Exposure: PastSmokeless Tobacco: Never Tobacco Cessation:Counseling Given: Not Answered Alcohol UseStandard Drinks/WeekCommentsNo0 (1 standard drink = 0.6 oz pure alcohol)PHQ-2AnswerDate RecordedPHQ-2 TOTAL [id number] Connections AnswerDate RecordedDo you often feel lonely or isolated from those around you?0 01/18/2025lcohol UseAnswerDate RecordedHow often do you have a drink containing alcohol?verage Number of DrinksNot on file04/14/2025Frequency of Binge DrinkingNot on file04/14/2025Financial Resource StrainAnswerDate Recorded Difficulty of Paying Living Idfkwzxg477ifficulty of Paying Living ExpensesNot on file03/30/2023Food InsecurityAnswerDate RecordedDo you worry your food will run out before you are able to buy more?Transportation NeedsAnswerDate RecordedDoes lack of transportation keep you from medical appointments?Does lack of transportation keep you from work, meetings or getting things that you need?Housing StabilityAnswerDate Recorded What is your housing situation today?Interpersonal SafetyAnswerDate RecordedAre you being hit, kicked, pushed or yelled at (see row info)?No 07/07/2025Interpersonal Safety Abuse 12 - 18Not on file07/07/2025Interpersonal Safety Ambulatory VulnerabilityNot on file07/07/2025UtilitiesAnswerDate Recorded Do you have trouble paying for utilities (for example, heat, electricity, water, phone)?CommentsNoSex and Gender InformationValueDate Recorded Sex Assigned at BirthNot on fileLegal CctGlrohe38/14/2013 5:18 AM CSTGender IdentityNot on fileSexual OrientationNot on fileOccupationIndustryJob Start Date Job End DateNot on fileNot on fileNot on fileNot on file Obstetrics History GravidaParaTermPretermABIABSABEctopicMultipleLivingLive Agrazz995659PjtuFvdwxut GATotal LaborLabor/2nd/8ubIaeqatSkoXfltJfnfVAWQcbU2L5ZcbkJacaSHUImsr Last Filed Vital Signs Vital SignReadingTime TakenCommentsBlood Nyleavzt369/7907/07/2025 12:32 PM WINDOW SHADE CUTTER Mobqj591107/07/2025 12:32 PM MMNJxndnibbdvh61.7 ??C (98 ??F)07/07/2025 12:32 PM CSTRespiratory Nkou0549 12:32 PM CSTOxygen Wqshusbttj00%07/07/2025 12:32 PM CSTInhaled Oxygen Concentration--Ixbdnf35.5 kg (162 lb)07/07/2025 12:32 PM MCJYoukrc496.4 cm (5')07/07/2025 12:32 PM CSTBody Mass Index31.6407/07/2025 12:32 PM WINDOW SHADE CUTTER Plan of Treatment DateTypeDepartmentCare Team (Latest Contact Info)Zrgrsnoycna57/29/2025 10:00 AM CSTProcedure Only [facility] [address] [place] [address] 07/12/2025Procedure Only [facility] [address] [place] [address] 07/17/2025 11:30 AM CSTOffice Visit [facility] [address] [place] [address] [place] [address] [place] [address] 07/19/2025 10:00 AM CSTTelemedicine [facility] [address] [place] [address] [place] [address] [place] [address] 07/20/2025 10:00 AM CSTAppointment [address] [address] 07/20/2025 11:00 AM CSTAppointment [address] [address] 07/20/2025 12:00 PM CSTAppointment [address] [address] 07/21/2025 3:45 PM CSTOffice Visit [facility] [address] [place] [address] Junior Boswell MBBS [address] [place] [address] 07/26/2025 10:00 AM CSTTelemedicine [address] [address] Malissa [place], [place] [address] [place] [address] 07/27/2025 1:30 PM [facility]Tele[facility] [address] [place] [address] MaleLeeann silverio, BECKY [address] [place] [address] 08/02/2025 10:00 AM CSTTelemedicine [address] [address] Malissa [place], [place] [address] [place] [address] 08/09/2025 10:00 AM CSTTelemedicine [address] [address] Malissa Forrest PsyD, LP [address] [place] [address] 08/16/2025 10:00 AM CSTTelemedicine [address] [address] Malissa Forrest PsyD, LP [address] [place] [address] 08/23/2025 10:00 AM CSTTelemedicine [address] [address] Malissa Forrest PsyD, LP [address] [place] [address] 08/30/2025 10:00 AM CSTTelemedicine [address] [address] Malissa [place], [place] [address] [place] [address] 09/06/2025 10:00 AM CSTTelemedicine [address] [address] Malissa Forrest [place]yD, [place] [address] [place] [address] 09/13/2025 10:00 AM CSTTele[facility] [address] [address] Malissa Forrest PsyD, LP [address] [place] [address] 09/20/2025 10:00 AM CDTTelethe university [facility] [address] [address] Malissa Forrest PsyD, LP [address] [place] [address] 11/08/2025 1:00 PM CDTOffice Visit [facility] [address] [place] [address] [place] [address] [place], [place] [id number] Health MaintenanceDue DateLast DoneCommentsInfluenza Vaccine (#1)03/13/2025 04/20/2024, 03/30/2023, 07/13/2022, Additional history existsMedicare Wellness for age 65+5107/30/2023, 03/30/2023, 03/18/2022, Additional history existsCOVID-19 vaccine series (9 - Moderna risk 2024- season)2025 06/05/2025, 04/20/2024, 05/01/2023, Additional history existsDepression screening for age 12+/05/2025, 10/06/2024, 10/06/2024, Additional history existsBMI (ht and wt on same day) for age 18+, 03/21/2025, 11/25/2024, Additional history existsTetanus jywuqle1003/18/2033 03/18/2023, 05/19/2012, 05/05/2006, Additional history existsZoster (shingles) series for age 50+Sfzyjbinn49/26/2020, 02/28/2020, 05/13/2010DEXA/DXA scan for age 65+Zbzslquxw16/08/2023, 09/17/2020, 08/13/2018, Additional history existsRSV vaccine for adults or oegqdkttdGoyzkbzjj38/06/2023, 3Pneumococcal series for age 50+Cldmfqorr86/26/2024, 07/31/2015, 04/23/2015, Additional history existsHepatitis B series for 19+Aged OutNo longer eligible based on patient's age to complete this topic Medical Devices ImplantedTypeAreaManufacturerDevice IdentifierShelf Expiration DateModel / Serial / LotStandard Pacemaker-07/23/2015 Implanted:07/23/2015 by Giovani Martinez MD (Quantity not on file) Standard PacemakerChestBoston ScientificACCOLADE / [id number] / Fabric Cardiovasc 0.3x3in Hemashield [id number] - [id number] Implanted:Qty[facility] 1 [facility]28/2010 [facility]: Carotid ArteryGetinge Group07/13/2015019529# / / [id number] Vasc 0.8x8cm Vascuguard Bovine - [id number] Implanted:Qty: 1 on 01/26/2017 by Bharath La MD at [facility] Right: Carotid ArteryBaxter International Inc04/08/2021VG-0108N# / / [id number] Ritchie +21 Tecnis Zcb00 - [id number] Implanted:Qty: 1 on 02/18/2021 by [facility] Medical Fjigtw5010/19/2024ZCB00 21.0 / [id number] / Iol Ritchie +21 Tecnis Zcb00 - [id number] Implanted:Qty: 1 on 03/04/2021 by [facility]kel [facility]bs [facility] Medical Qemriq0512/17/2024ZCB00 21.0 / [id number] / Insert Sz D 36mm 0 Deg Trident X3 - [id number] Implanted:Qty: 1 on 03/23/2024 by Óscar Murphy MD at [facility] Right: [id number] / / [id number] Hip 11mm Accolade - [id number] Implanted:Qty: 1 on 03/23/2024 by Óscar Murphy MD at [facility] Right: [id number] / / [id number] Hip V40 Od36mm +2.5 Biolox Delta Alumina Cer - [id number] Implanted:Qty: 1 on 03/23/2024 by Óscar Murphy MD at [facility] Right: [id number] / / [id number] Bone 40g Simplex P Non Atb Mv - [id number] Implanted:Qty: 1 on 03/23/2024 by Óscar Murphy MD at [facility] Right: [place] [id number] / / [id number] Bone 40g Simplex P Non Atb Mv - [id number] Implanted:Qty: 1 on 03/23/2024 by Óscar Murphy MD at [facility] Right: [id number] / / [id number] Hip 50d Trident Ii Clusterhole Tritanium - [id number] Implanted:Qty: 1 on 03/23/2024 by Óscar Murphy MD at [facility] Right: [id number] / / [id number] Hip Sz 6 127 Deg Accolade Co Cr - [id number] Implanted:Qty: 1 on 03/23/2024 by Óscar Murphy MD at [facility] Right: [id number] / / [id number]tu IdentifierShelf Expiration DateModel / Serial / LotCmnt Restrictor W/Pipe Fitter Ammonia [id number] - [id number] Explanted:Qty: 1 on 03/23/2024 by Óscar Murphy MD at [facility] Right: [place] [id number] / / [id number] Procedures Procedure NamePriorityDate/TimeAssociated DiagnosisCommentsEKG 12 LEADRoutine 06/16/2025 2:13 PM WINDOW SHADE CUTTER Fitting or adjustment of cardiac pacemaker ECHO TTE COMPLETE W BVCYWNCGQmgqlab20/05/2025 2:06 PM WINDOW SHADE CUTTER Fitting or adjustment of cardiac pacemaker BASIC METABOLIC DQJCBCjfye41/05/2025 12:32 PM WINDOW SHADE CUTTER Chronic diastolic heart failure (HC) XR CHEST 2 VIEWS PA AND ZKPLTQYKNOD49/03/2025 12:00 AM WINDOW SHADE CUTTER Acute on chronic diastolic (congestive) heart failure (HC) BASIC METABOLIC VFUXPDidxjoc23/03/2025 11:59 AM CDT Hyponatremia QUQWpyiwfm04/03/2025 11:59 AM CDT Abnormal TSH PRO-DQFNtvvzar04/03/2025 11:59 AM CDT Chronic heart failure with preserved ejection fraction (HFpEF) (HC) XR CHEST 2 VIEWS PA AND BORRKUPYfxaekl66/03/2025 11:46 AM CDT SOBOE (shortness of breath on exertion) XR DXA BONE DENSITY 2 SITES NZIICFliopmu75/08/2023 1:11 PM CDT Screening for osteoporosis from Last 3 Months or Most Recently Relevant to Health Maintenance Results * EKG 12 LEAD (06/16/2025 2:13 PM WINDOW SHADE CUTTER)ComponentValueRef RangeTest MethodAnalysis TimePerformed AtPathologist SignatureInterpretationAV dual-paced rhythm Biventricular pacemaker detected Abnormal ECG When compared with ECG of 11-Mar-2025 09:10, No significant change was found BEYOND NOWVentricular Pigl99GFPNJFZFI NOWAtrial Qduc55RCXVTZMTE NOWP-R Interval 186msBEYOND NOWQRS Bjihpeda627ykYPPLQM VKIJS961zbLNMKCK IDCDPn846jgUOTCPG NOWP AxisdegreesBEYOND NOWR Lzjj609zjsrsfkVMGRJX NOWT Qkgu2txavrbhXDMPPW NOWSpecimen (Source)Anatomical Location / LateralityCollection Method / VolumeCollection TimeReceived Time06/16/2025 2:13 PM CST06/20/2025 2:02 AM WINDOW SHADE CUTTER Narrative BEYOND NOW - 06/20/2025 2:02 AM WINDOW SHADE CUTTER Test Indication: PLAN MANAGER IMPLANTATION Authorizing ProviderResult TypeResult StatusAlan Renato Latif MDEKG ORDFinal Result Performing OrganizationAddressCity/State/ZIP CodePhone Number BEYOND NOW [place], [place] * ECHO TTE COMPLETE W CONTRAST (06/16/2025 2:06 PM WINDOW SHADE CUTTER)ComponentValueRef Range Test MethodAnalysis TimePerformed AtPathologist SignatureEJECTION FRACTION 50-55%PROSOLVAnatomical RegionLateralityModalityUltrasoundSpecimen (Source) Anatomical Location / LateralityCollection Method / VolumeCollection Time Received Time06/16/2025 12:44 PM WINDOW SHADE CUTTER Narrative 06/16/2025 3:55 PM WINDOW SHADE CUTTER [address], [place] [address] Main: ? Transthoracic Echo Report YOUSUF KEITH ID: [id number] Age: 80 : 1945 Ordering Provider: ZAFAR LATIF Exam Date: 06/16/2025 12:44 Gender: F Crm Solution Architect: JESSICA KRUEGER Height: 63 in BSA: 1.78 m?? BP: 110 / 60 Weight: 165 lbs BMI: 29.3 kg/m?? HR: 70 Location: [facility] Rhythm: Artificially Paced, Normal Sinus Rhythm Procedure Components: 2D imaging with contrast, Color Doppler, Spectral Doppler Indications: Fitting or adjustment of cardiac pacemaker Technical Quality: Adequate Contrast: Definity Constrast Dose (ml): .6 [facility]#: [id number] Final Conclusion Previous Study: 02-23-25 1. Borderline left ventricular chamber enlargement. ??Estimated left ventricular ejection fraction is 50-55%. 2. 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 3. Aortic prosthetic systolic mean gradient is 10 mmHg. 4. Trivial aortic collin-prosthetic regurgitation. 5. Severe mitral annular calcification. ??Mild-moderate mitral valve regurgitation. 6. Mitral valve diastolic mean gradient is 3 mmHg (at a HR of 70 bpm). 7. Right ventricular systolic pressure cannot be estimated due to inability to detect peak tricuspid regurgitation Doppler velocity. 8. The EF has improved when compared to the previous images. Estimated EF: 50-55% FINDINGS Left Ventricle Borderline left ventricular chamber enlargement. Mildly increased left ventricular wall thickness. Mildly decreased left ventricular systolic function. Calculated left ventricular ejection fraction (modified Mendoza technique) is 46%. Generalized left ventricular hypokinesis with variation. ??Estimated left ventricular ejection fraction is 50-55%. Diastolic Function Findings consistent with increased left ventricular filling pressure. Right Ventricle Normal right ventricular chamber size. Mildly decreased right ventricular systolic function. Right ventricular systolic pressure cannot be estimated due to inability to detect peak tricuspid regurgitation Doppler velocity. Left Atrium Severe left atrial enlargement. Left atrial volume index is 67 ml/m??. Right Atrium Normal right atrial size. Atrial Septum No evidence of inter-atrial shunt by color flow Doppler. 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 Aortic prosthetic systolic mean gradient is 10 mmHg. Aortic valve area by Doppler is 1.9 cm??. Aortic valve dimensionless index is 0.54. Trivial aortic collin-prosthetic regurgitation. Mitral Valve Severe mitral annular calcification. Restricted posterior mitral valve leaflet. Mitral valve diastolic mean gradient is 3 mmHg (at a HR of 70 bpm). Mild-moderate mitral valve regurgitation. Tricuspid Valve Normal tricuspid valve. Mild tricuspid valve regurgitation. Pulmonic Valve Normal pulmonary valve. No pulmonary valve regurgitation. Pericardium No pericardial effusion. Aorta Aortic sinus of Valsalva was not well visualized. Normal indexed ascending aorta dimension (3.6 cm, 2 cm/m??). Inferior Vena Cava Normal size inferior vena cava with decreased inspiratory collapse. Other Device lead(s) identified in the right atrium and right ventricle. MEASUREMENTS ??(Male / Female) Normal Values 2D MEASUREMENTS AND LV FUNCTION IVS Diastolic Thickness 1.3 cm < 1.1 cm / < 1.0 cm LV Diastolic Diameter PLAX ?5.6 cm ?4.2 - 5.9 / 3.9 - 5.3 cm LV Diastolic Diameter Index ? 3.14 cm/m?? LVPW Diastolic Thickness 1.1 cm < 1.1 cm / < 1.0 cm LV Systolic Diameter PLAX ? 4.8 cm LV Systolic Diameter Index ?2.69 cm/m?? LVOT Diameter ? 2.1 cm LVOT Cardiac Output ? 5.75 l/min LVOT Cardiac Index ?3.11 l/min??m?? LVOT Stroke Volume ?82.1 ml Stroke Volume Index ? 44.4 ml/m?? LV Ejection Fraction MOD BP 45.8 % >= 55 % LA Volume MOD BP ?120 ml LA Volume Index MOD BP ?67.3 ml/m?16 - 34 ml/m?? LV Mass ? 280 g LV Mass Index ? 154 g/m?? Ascending Aorta Diameter(s) ? 3.6 cm Ascending Aorta Index ? 2.02 cm/m?? M MODE TAPSE MM ?1.5 cm DIASTOLOGY Mitral E Point Velocity ? 1.41 m/sec ?0.70 - 1.02 m/sec Mitral A Point Velocity ? 0.613 m/sec ? 0.06 - 1.06 m/sec Mitral E to A Ratio ? 2.3 ? 1.1 - 2.1 MV Deceleration Time ?235 msec ?167 - 231 msec LV E' Lateral Velocity ?0.0531 m/sec Mitral E to LV E' Lateral Ratio ?? 26.6 LV E' Septal Velocity ? 0.0312 m/sec Mitral E to LV E' Septal Ratio ?45.2 AORTIC VALVE AV Peak Velocity 2.03 m/sec < 2.0 m/sec AV Peak Gradient ?16.5 mmHg AV Mean Gradient ?9 mmHg AV Velocity Time Integral ? 43.7 cm LVOT Peak Velocity ?1.19 m/sec LVOT Velocity Time Integral ? 23.7 cm AV Area Cont Eq vti ? 1.88 cm?? AV Area Cont Eq pk ?2.03 cm?? AV Dimensionless Index ?0.542 MITRAL VALVE MV Peak Gradient ?8.64 mmHg MV Mean Gradient ?3 mmHg MV Velocity Time Integral ? 37 cm MR Peak Velocity ?525 cm/sec MR Velocity Time Integral ? 166 cm MR ERO PISA ? 0.125 cm?? TRICUSPID VALVE AND ESTIMATED PRESSURES Right Atrial Pressure ? 8 mmHg HCM DATA LVOT RUDY (r) ?5.66 mmHg Michael Sequeira MD [facility] Accredited Site (Electronically Signed) Final Date: 16 June 2025 15:54 ICD-10 Codes: Z45.018 Procedure Note Michael Sequeira MD - 06/16/[address], [place] [address] Main: Transthoracic Echo Report YOUSUF KEITH Imani ID: [id number] Age: 80 : 1945 Ordering Provider: ZAFAR LATIF Exam Date: 06/16/2025 12:44 Gender: F Crm Solution Architect: JESSICA KRUEGER Height: 63 in BSA: 1.78 m?? BP: 110 / 60 Weight: 165 lbs BMI: 29.3 kg/m?? HR: 70 Location: [facility] Rhythm: Artificially Paced,Normal Sinus Rhythm Procedure Components: 2D imaging with contrast, Color Doppler, SpectralDoppler Indications: Fitting or adjustment of cardiac pacemaker Technical Quality: Adequate Contrast: Definity Constrast Dose (ml): .6 [facility]#: [id number] Final Conclusion Previous Study: 02-23-25 1. Borderline left ventricular chamber enlargement. Estimated leftventricular ejection fraction is 50-55%. 2. Status post 23-mm Camilo Michelle 3 (transcatheter) aorticbioprosthetic valve (10/15/2023). 3. Aortic prosthetic systolic mean gradient is 10 mmHg. 4. Trivial aortic collin-prosthetic regurgitation. 5. Severe mitral annular calcification. Mild-moderate mitral valveregurgitation. 6. Mitral valve diastolic mean gradient is 3 mmHg (at a HR of 70 bpm). 7. Right ventricular systolic pressure cannot be estimated due toinability to detect peak tricuspid regurgitation Doppler velocity. 8. The EF has improved when compared to the previous images. Estimated EF: 50-55% FINDINGS Left Ventricle Borderline left ventricular chamber enlargement. Mildlyincreased left ventricular wall thickness. Mildly decreased left ventricular systolic function. Calculated left ventricular ejection fraction (modified Mendoza technique) is 46%. Generalized left ventricular hypokinesis withvariation. Estimated left ventricular ejection fraction is 50-55%. Diastolic Function Findings consistent with increased left ventricularfilling pressure. Right Ventricle Normal right ventricular chamber size. Mildly decreasedright ventricular systolic function. Right ventricular systolic pressure cannot be estimated due to inability to detect peaktricuspid regurgitation Doppler velocity. Left Atrium Severe left atrial enlargement. Left atrial volume index is67 ml/m??. Right Atrium Normal right atrial size. Atrial Septum No evidence of inter-atrial shunt by color flow Doppler. 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 Aortic prosthetic systolic mean gradient is 10 mmHg. Aortic valve area by Doppler is 1.9cm??. Aortic valve dimensionless index is 0.54. Trivial aortic collin-prosthetic regurgitation. Mitral Valve Severe mitral annular calcification. Restricted posteriormitral valve leaflet. Mitral valve diastolic mean gradient is 3 mmHg (at a HR of 70 bpm). Mild-moderate mitral valve regurgitation. Tricuspid Valve Normal tricuspid valve. Mild tricuspid valveregurgitation. Pulmonic Valve Normal pulmonary valve. No pulmonary valveregurgitation. Pericardium No pericardial effusion. Aorta Aortic sinus of Valsalva was not well visualized. Normal indexedascending aorta dimension (3.6 cm, 2 cm/m??). Inferior Vena Cava Normal size inferior vena cava with decreasedinspiratory collapse. Other Device lead(s) identified in the right atrium and rightventricle. MEASUREMENTS (Male / Female) Normal Values 2D MEASUREMENTS AND LV FUNCTION IVS Diastolic Thickness 1.3 cm < 1.1 cm / < 1.0cm LV Diastolic Diameter PLAX 5.6 cm 4.2 - 5.9 / 3.9 -5.3 cm LV Diastolic Diameter Index 3.14 cm/m?? LVPW Diastolic Thickness 1.1 cm < 1.1 cm / < 1.0cm LV Systolic Diameter PLAX 4.8 cm LV Systolic Diameter Index 2.69 cm/m?? LVOT Diameter 2.1 cm LVOT Cardiac Output 5.75 l/min LVOT Cardiac Index 3.11 l/min??m?? LVOT Stroke Volume 82.1 ml Stroke Volume Index 44.4 ml/m?? LV Ejection Fraction MOD BP 45.8 % >= 55 % LA Volume MOD BP 120 ml LA Volume Index MOD BP 67.3 ml/m?? 16 - 34 ml/m?? LV Mass 280 g LV Mass Index 154 g/m?? Ascending Aorta Diameter(s) 3.6 cm Ascending Aorta Index 2.02 cm/m?? M MODE TAPSE MM 1.5 cm DIASTOLOGY Mitral E Point Velocity 1.41 m/sec 0.70 - 1.02m/sec Mitral A Point Velocity 0.613 m/sec 0.06 - 1.06m/sec Mitral E to A Ratio 2.3 1.1 - 2.1 MV Deceleration Time 235 msec 167 - 231 msec LV E' Lateral Velocity 0.0531 m/sec Mitral E to LV E' Lateral Ratio 26.6 LV E' Septal Velocity 0.0312 m/sec Mitral E to LV E' Septal Ratio 45.2 AORTIC VALVE AV Peak Velocity 2.03 m/sec < 2.0 m/sec AV Peak Gradient 16.5 mmHg AV Mean Gradient 9 mmHg AV Velocity Time Integral 43.7 cm LVOT Peak Velocity 1.19 m/sec LVOT Velocity Time Integral 23.7 cm AV Area Cont Eq vti 1.88 cm?? AV Area Cont Eq pk 2.03 cm?? AV Dimensionless Index 0.542 MITRAL VALVE MV Peak Gradient 8.64 mmHg MV Mean Gradient 3 mmHg MV Velocity Time Integral 37 cm MR Peak Velocity 525 cm/sec MR Velocity Time Integral 166 cm MR ERO PISA 0.125 cm?? TRICUSPID VALVE AND ESTIMATED PRESSURES Right Atrial Pressure 8 mmHg HCM DATA LVOT RUDY (r) 5.66 mmHg Michael Sequeira MD [facility] Accredited Site (Electronically Signed) Final Date: 16 June 2025 15:54 ICD-10 Codes: Z45.018 Authorizing ProviderResult TypeResult StatusAlan Renato SNIDER ORDFinal Result * (ABNORMAL) BASIC METABOLIC PANEL (06/16/2025 12:32 PM [facility]) Only the most recent of2 resultswithin the time period is included. ComponentValueRef RangeTest MethodAnalysis TimePerformed AtPathologist Signature [id number] - 145 mmol/L108/17/2024 1:06 PM [facility] LABPOTASSIUM3.73.5 - 5.1 mmol/L108/17/2024 1:[address] [facility] TGXDKMQTCIE64(L)98 - 107 mmol/L108/17/2024 1:[address] [facility] LABCO2,TOTAL30(H)22 - 29 mmol/L108/17/2024 1:[address] [facility] LABANION GAP95 - 18108/17/2024 1:[address] [facility] GFVLLNPRHU536(H)70 - 99 mg/dL 06/16/2025 1:[address] [facility] CALCIUM9.28.8 - 10.4 mg/dL06/16/2025 1:06 PM [facility] LABComment: Reference ranges for this test were updated on 05/17/2024 to reflect our healthy population more accurately. Reference range changes are not retroactively applied to results, but previous results using the same methodology can be interpreted in the context of the new reference range. RJB742 - 23 mg/dL06/16/2025 1:[address] [facility] LABCREATININE1.32(H)0.50 - 0.90 mg/dL06/16/2025 1:[address] [facility] LABBUN/CREAT [id number] - 20 06/16/2025 1:[address] [facility] eGFR41(L)>90 mL/min/1.33h14906/16/2025 1:06 PM [facility] LABComment:As of 09/24/2021, eGFR is calculated by the CKD-EPI creatinine equation without race adjustment. ??eGFR can be influenced by muscle mass, exercise, and diet. ??The reported eGFR is an estimation onlyand is only applicable if the renal function is stable.Specimen (Source)Anatomical Location / LateralityCollection Method / VolumeCollection TimeReceived TimeBlood BLOOD SPECIMEN / UnknownButterfly / Kireiwc5606/16/2025 12:32 PM CST06/16/2025 12:32 PM [facility] Narrative Authorizing ProviderResult TypeResult StatusBrenrico Vee MDCHEMISTRY Final ResultPerforming OrganizationAddressCity/State/ZIP CodePhone Number [facility] [address] [place] [phone], * XR CHEST 2 VIEWS PA AND LATERAL (06/14/2025 12:00 AM [facility]) Only the most recent of2 resultswithin the time period is included. Anatomical RegionLateralityModalityCHEST, THORAX, Lung, HEARTDigital Radiography Narrative Authorizing ProviderResult TypeResult StatusRandiane Yadav MDGENERAL IMAGING Final Result * (ABNORMAL) TSH (04/14/2025 11:59 AM CDT)ComponentValueRef RangeTest Method Analysis TimePerformed AtPathologist SignatureTSH6.32(H)0.40 - 4.50 mIU/L 04/15/2025 5:40 AM CDTQUEST DIAGNOSTICSSpecimen (Source)Anatomical Location / LateralityCollection Method / VolumeCollection TimeReceived TimeBloodBLOOD SPECIMEN / UnknownQuest Collect / Dupayvw8604/14/2025 11:59 AM CDT1 11:59 AM CDT Narrative Authorizing ProviderResult TypeResult StatusStuart Adams NPCHEMISTRYFinal ResultPerforming OrganizationAddressCity/State/ZIP CodePhone Number [facility] [address] [phone], * (ABNORMAL) PRO-BNP (04/14/2025 11:59 AM CDT)ComponentValueRef RangeTest Method Analysis TimePerformed AtPathologist SignatureNT [id number](H)<450 pg/mL 04/15/2025 11:38 AM CDTQUEST DIAGNOSTICSSpecimen (Source)Anatomical Location / LateralityCollection Method / VolumeCollection TimeReceived TimeBloodBLOOD SPECIMEN / UnknownQuest Collect / Qbiygsh5904/14/2025 11:59 AM CDT1 11:59 AM CDT Narrative Authorizing ProviderResult TypeResult StatusGlenn Vee MDSEND OUTS Final ResultPerforming OrganizationAddressCity/State/ZIP CodePhone Number [facility] [address] [phone], * XR DXA BONE DENSITY 2 SITES AXIAL (12/18/2022 1:11 PM CDT)Anatomical Region LateralityModalitySpine, HIPS, HIPL, HIPRDigital RadiographySpecimen (Source) Anatomical Location / LateralityCollection Method / VolumeCollection Time Received Time12/18/2022 1:11 PM CDT Impressions 12/18/2022 1:14 PM CDT Low bone density (OSTEOPENIA). T score meets the WHO criteria for low bone density (osteopenia) at one or more measured sites. The risk of osteoporotic fracture increases approximately two-fold for each standard deviation decrease in T-score. Narrative 12/18/2022 1:14 PM CDT For Patients: As a result of the Century Cures Act, medical imaging exams and procedure reports are released immediately into your electronic medical record. You may view this report before your referring provider. If you have questions, please contact your health care provider. EXAM: XR DXA BONE DENSITY 2 SITES AXIAL LOCATION: [facility] DATE/TIME: 12/18/2022 1:11 PM CDT INDICATION: C. low bone density-osteopenia (must be documented by previous scan) - m85.80 ScreeningFor Osteoporosis DEMOGRAPHICS: Age- 77 years. Gender- Female. COMPARISON: [facility] TECHNIQUE: Dual-energy x-ray absorptiometry (DXA) performed with routine technique. FINDINGS: DXA RESULTS -Lumbar Spine: L1-L4: BMD: 1.261 g/cm2. T-score: 0.7. Z-score: 2.0. -RIGHT Hip Total: BMD: 0.805 g/cm2. T-score: -1.6. Z-score: 0.0. -RIGHT Hip Femoral neck: BMD: 0.810 g/cm2. T-score: -1.6. Z-score: 0.1. -LEFT Hip Total: BMD: 0.795 g/cm2. T-score: -1.7. Z-score: -0.1. -LEFT Hip Femoral neck: BMD: 0.806 g/cm2. T-score: -1.7. Z-score: 0.1. WHO T-SCORE CRITERIA -Osteopenia: T score between -1 and -2.5 SD The World Health Organization (WHO) criteria is applicable to perimenopausal females, postmenopausal females, and men aged 50 years or older. INTERVAL CHANGE -There has been a -1.1% decrease in lumbar spine BMD. -There has been a -9.5% decrease in bilateral hip BMD. FRACTURE RISK -FRAX Results: The 10 year probability of major osteoporotic fracture is 13.0%, and of hip fractureis 3.1%, based on left femoral neck BMD. RECOMMENDATIONS Consider treatment if major osteoporotic fracture score is greater than or equal to 20%, and if thehip fracture score is greater than or equal to 3%. Procedure Note Tena Lucaino MD - 12/18/2022 For Patients: As a result of the Cures Act, medical imagingexams and procedure reports are released immediately into your electronicmedical record. You may view this report before your referring provider.If you have questions, please contact your health care provider. EXAM: XR DXA BONE DENSITY 2 SITES AXIAL LOCATION: [facility] DATE/TIME: 12/18/2022 1:11 PM CDT INDICATION: C. low bone density-osteopenia (must be documented by previousscan) - m85.80 Screening For Osteoporosis DEMOGRAPHICS: Age- 77 years. Gender- Female. COMPARISON: [facility] TECHNIQUE: Dual-energy x-ray absorptiometry (DXA) performed with routine technique. FINDINGS: DXA RESULTS -Lumbar Spine: L1-L4: BMD: 1.261 g/cm2. T-score: 0.7. Z-score: 2.0. -RIGHT Hip Total: BMD: 0.805 g/cm2. T-score: -1.6. Z-score: 0.0. -RIGHT Hip Femoral neck: BMD: 0.810 g/cm2. T-score: -1.6. Z-score: 0.1. -LEFT Hip Total: BMD: 0.795 g/cm2. T-score: -1.7. Z-score: -0.1. -LEFT Hip Femoral neck: BMD: 0.806 g/cm2. T-score: -1.7. Z-score: 0.1. WHO T-SCORE CRITERIA -Osteopenia: T score between -1 and -2.5 SD The World Health Organization (WHO) criteria is applicable toperimenopausal females, postmenopausal females, and men aged 50 years orolder. INTERVAL CHANGE -There has been a -1.1% decrease in lumbar spine BMD. -There has been a -9.5% decrease in bilateral hip BMD. FRACTURE RISK -FRAX Results: The 10 year probability of major osteoporotic fracture is13.0%, and of hip fracture is 3.1%, based on left femoral neck BMD. RECOMMENDATIONS Consider treatment if major osteoporotic fracture score is greater than orequal to 20%, and if the hip fracture score is greater than or equal to3%. IMPRESSION: Low bone density (OSTEOPENIA). T score meets the WHO criteria for low bone density (osteopenia) at one or more measured sites. The risk ofosteoporotic fracture increases approximately two-fold for each standarddeviation decrease in T-score. Authorizing ProviderResult TypeResult StatusRosy Villela NPDEXAFinal Result from Last 3 Months or Most Recently Relevant to Health Maintenance Insurance * Guarantor: Yousuf Keith EAccount TypeRelation to PatientDate of BirthPhone Billing AddressPersonal/[phone] [place] [address] * Guarantor: Yousuf Keithcokumar TypeRelation to PatientDate of BirthPhone Billing AddressPersonal/Jff[phone] [place] [address] Advance Directives TypeDate RecordedPatient RepresentativeExplanationPOLST10/07/2024Healthcare Directive12/13/2007DECEMBER 2003 * Full Code (Latest Code Status on File) Date ActivatedDate InactivatedComments03/10/2025 2:01 PM03/11/2025 12:53 PM QuestionAnswerCommentsCode Status Discussion:* Reviewed Preferences * Full Code Date ActivatedDate InactivatedComments01/17/2025 2:36 PM01/21/2025 4:33 PMQuestion AnswerCommentsCode Status Discussion:* Reviewed Preferences * Full Code Date ActivatedDate InactivatedComments07/23/2024 5:45 PM07/25/2024 5:24 PMQuestion AnswerCommentsCode Status Discussion:* Reviewed Preferences * Full Code Date ActivatedDate InactivatedComments04/01/2024 7:52 AM04/04/2024 3:31 PMQuestion AnswerCommentsCode Status Discussion:* Reviewed Preferences * Full Code Date ActivatedDate InactivatedComments03/23/2024 5:44 AM04/01/2024 7:51 AMQuestion AnswerCommentsCode Status Discussion:* Unable to Assess Preferences, Provider to review later Care Teams Team MemberRelationshipSpecialtyStart [place] [address] [place] [address] PCP - GeneralFamily Practice08/05/21 Glenn Vee MD [address] [place] [address] [place], [place] [id number] Consulting PhysicianCardiovascular Disease12/15/13 Becca Connors RN [address] [place], [place] [id number] Cancer Nurse VwgfhlvbhiwNhdsfulz67/18/19 Emmanuelle Tony MD [address] [place] [address] Consulting PhysicianHematology and Oncology01/24/20 Tremayne Diaz MD [address] [place] [address] Consulting PhysicianNephrology08/17/20 Ray Almaguer MD [address] [place] [address] Consulting PhysicianDermatolog08/17/20 Junior Boswell MBBS [address] [place] [address] Vascular SurgerySurgery - Vascular10/25/20 Jay Aranda MD [address] [place] [address] OrthopedicsSurgery - Orthopedics10/25/20 Leeann Granado NP [address] [place] [address] PsychiatryNurse Practitioner08/08/21 Malissa Forrest PsyD, SHAAN [address] [place] [address] PsychologistPsychology08/08/21 Albert Kee MD [address] [place] [address] Klxxsovkg00/17/23 Iris Chapman, IMMANUEL [address] [place] [address] Primary Care RN Care ManagementFamily Practice08/07/23 Rosana Hamilton, BECKY [address] [place] [address] Nurse PractitionerCardiovascular Disease07/26/24 Brandie Lloyd, PharmD [address] [place] [address] Pharmacist Medication ManagementPharmacolog/ Sarahi Kaba MD [facility] Pulmonology01/03/22 [facility] in [place] 01/19/25
--- OUTSIDE RECORDS SUMMARY | 2025-07-08 09:57 | XMS_ITS | Encounter Summary ---
Author Organization [facility] Address [address] [place] [address]. [place] [address] Care Team Providers Care Pecan Gatherer Name Role Phone Judah Yadav MD Primary Care Provider [phone] Encounter Details DateTypeDepartmentCare Team (Latest Contact Info)Qefyfvmoekl35/17/2025Travel Social History Tobacco UseTypesPacks/DayYears UsedDateSmoking Tobacco: FormerCigarettes Smokeless Tobacco: NeverAlcohol UseStandard Drinks/WeekCommentsNot Currently0 (1 standard drink = 0.6 oz pure alcohol)Adolescent EducationAnswerDate Recorded Getting School Help NeededNot on file3CommentsNoSex and Gender InformationValueDate RecordedSex Assigned at BirthNot on fileLegal SexFemale 05/16/2012 3:14 AM CSTGender IdentityNot on fileSexual OrientationNot on file documented as of this encounter Plan of Treatment Not on file documented as of this encounter Visit Diagnoses Not on filedocumented in this encounter Care Teams Team MemberRelationshipSpecialtyStart [place] [id number] [address] [place] [address] PCP - General03/12/22documented as of this encounter
[2025-07-08 10:10] VITALS: BP 162/74; PULSE 70; RESP 18; TEMP 36.5; O2SAT 91; BMI 31.6
--- NOTE | 2025-07-08 10:18 | CRLHL7_ITS ---
For Patients: As a result of the Century Cures Act, medical imaging exams and procedure reports are released immediately into your electronic medical record. You may view this report before your referring provider. If you have questions, please contact your health care provider. INDICATION: Back pain TECHNIQUE: Lumbar spine radiograph 3 views COMPARISON: None FINDINGS: Bone: Mild compression deformity of L5 is present and is likely a chronic finding. Alignment is normal. Moderate diffuse osteopenia is present. Disc: Zfwt-ej-optgsyqi diffuse degenerative disc disease is present with prominent endplate osteophytes. Bilateral severe facet osteoarthritis noted at L3-4 through L5-S1. Soft tissue: Unremarkable. No radiopaque foreign bodies are seen. The right fallopian tubal ligation clip and an adjacent vascular stent noted in the right pelvis. Severe atherosclerotic calcifications of the abdominal aorta are present. IMPRESSION: 1. Mild compression deformity of L5 is present and is likely a chronic finding. Correlation with physical exam for focal tenderness in this region is recommended to exclude an acute injury if there is history of recent trauma. Dictated by Marc Bailey MD @ 07/08/2025 11:10:10 AM Dictated by: Marc Bailey MD @ 07/08/2025 11:10:14 (Electronically Signed)
[2025-07-08 11:04] LABS: Appearance Urine Clear (Clear)
--- NOTE | 2025-07-08 11:20 | ED.BACK ---
HPI - Back Pain/Injury General Chief Complaint: Back Injury/Pain Stated Complaint: back pain Time Seen by Provider: 07/08/25 11:02 History of Present Illness HPI Narrative: This 80-year-old female comes in with a family member because of low back pain. She resides in assisted living. Twelve days ago she tripped and fell onto her left knee. She went to a different hospital and had x-rays done which showed no sign of fracture or malalignment. A few days after this she started to develop pain across her low back. She states that if she remains still she does not feel any pain but has more distinct pain with movement and ambulating. She does use a walker to ambulate and has been functioning in this way since the fall but using a wheelchair when going to meals and needing to ambulate with more distance. She is taking Tylenol for pain but comes in stating that she would benefit from better pain relief. She does take Xarelto. Related Data Home Medications ?Medication ?Instructions ?Recorded ?Confirmed allopurinol 100 mg tablet 100 mg PO BID 04/24/22 04/24/22 amlodipine 10 mg tablet 10 mg PO QDAY 04/24/22 04/24/22 anastrozole 1 mg tablet 1 mg PO QDAY 04/24/22 04/24/22 aspirin 81 mg tablet,delayed 81 mg PO QDAY 04/24/22 04/24/22 release (Adult Aspirin Regimen) buspirone 15 mg tablet 15 mg PO BID 04/24/22 04/24/22 calcium carbonate (Calcium 600) 600 mg PO QDAY 04/24/22 04/24/22 cholecalciferol (vitamin D3) 25 25 mcg PO QDAY 04/24/22 04/24/22 mcg (1,000 unit) capsule (Vitamin D3) famotidine 20 mg tablet 20 mg PO QDAY 04/24/22 04/24/22 fenofibrate nanocrystallized 145 145 mg PO QDAY 04/24/22 04/24/22 mg tablet isosorbide mononitrate 120 mg 120 mg PO QDAY 04/24/22 04/24/22 tablet,extended release 24 hr lansoprazole 30 mg capsule,delayed 30 mg PO QDAY 04/24/22 04/24/22 release levothyroxine 112 mcg capsule 112 mcg PO QDAY 04/24/22 04/24/22 losartan 100 mg tablet 100 mg PO QDAY 04/24/22 04/24/22 metoprolol tartrate 50 mg tablet 50 mg PO QDAY 04/24/22 04/24/22 prasugrel HCl 5 mg tablet (Effient) 5 mg PO QDAY 04/24/22 04/24/22 rosuvastatin 40 mg tablet 40 mg PO QDAY 04/24/22 04/24/22 sertraline 50 mg tablet (Zoloft) 50 mg PO QDAY 04/24/22 04/24/22 spironolactone 25 mg tablet 25 mg PO QDAY 04/24/22 04/24/22 (Aldactone) vit C 250 mg-vit E 200 unit-zinc cap PO 04/24/22 04/24/22 ox 12.5 ur-jbimca-miajar-zeax capsule (ICaps AREDS2) Previous Rx's ?Medication ?Instructions ?Recorded cyclobenzaprine 10 mg tablet 10 mg PO TID #15 tabs 07/08/25 hydrocodone 5 mg-acetaminophen 325 1 tab PO Q4-6H PRN pain #20 tabs 07/08/25 mg tablet Allergies Allergy/AdvReac Type Severity Reaction Status Date / Time carvedilol Allergy Severe Verified 07/08/25 10:10 doxycycline Allergy Severe Rash Verified 07/08/25 10:10 morphine Allergy Severe Hallucinati Verified 07/08/25 10:10 ng Levofloxacin Allergy Severe Rash Uncoded 04/24/22 11:57 Sulfabenzamide Allergy Severe Rash Uncoded 04/24/22 11:57 Sulfacetamide Allergy Severe Rash Uncoded 04/24/22 11:57 Sulfathiazole Allergy Severe Rash Uncoded 04/24/22 11:57 Review of Systems Status of ROS: Reports: 10 or more systems reviewed and unremarkable except as noted in History and below Narrative: Constitutional: No fevers, no weight gain or loss. Eyes: No discharge. No vision changes. HENT: No congestion, no sore throat, no ear pain. Cardiovascular: No chest pain, no palpitations. Respiratory: No shortness of breath, no wheezes, no cough. Gastrointestinal: No abdominal pain, no vomiting, no diarrhea. Genitourinary: No dysuria, no hematuria. Musculoskeletal: Normal range of motion. Low back pain as described above. Skin: No rashes, no pruritis. Neurological: No dizziness, weakness, sensory change, speech change. Endo/Heme/Allergies: No bleeding. No polydipsia. Pysch: no suicidality, no anxiety, no insomnia. All other systems reviewed and are negative. [facility] Social History Smoking Status: Former smoker Exam Narrative: Exam Narrative: Constitutional: Well-developed, well-nourished, no acute distress. HEENT: Normocephalic, atraumatic. Neck: Normal range of motion. Nontender. Supple. Heart: Intact distal pulses. Lungs: No chest discomfort. No wheezes, rhonchi, or rales. Abdomen: Nontender. Back: Normal range of motion. Diffuse pain across the low back. No point tenderness. Extremities: Normal range of motion. Bruising extending from her left knee down toward her ankle. Skin: Intact. No rash. Warm. No erythema or pallor. Neurologic: No altered sensation. No weakness. Alert and oriented. Psychiatric: No suicidality. No anxiety or depression. No insomnia. Nursing notes and vitals signs are reviewed. Const: Vital Signs, click to edit/add: Vital Signs - 24 hr 07/08/25 10:10 Temperature 97.7 F Pulse Rate [Pulse Oximeter] 70 Respiratory Rate 18 Blood Pressure [Ri ght Upper Arm] 162/74 H Pulse Oximetry 91 Oxygen Delivery Me thod Room Air Course Vital Signs Vital signs: Initial Vital Signs Temperature 97.7 F 07/08/25 10:10 Temperature Source Temporal Artery Scan 07/08/25 10:10 Pulse Rate 70 07/08/25 10:10 Respiratory Rate 18 07/08/25 10:10 Blood Pressure 162/74 H 07/08/25 10:10 Blood Pressure Mean 103 07/08/25 10:10 Pulse Oximetry 91 07/08/25 10:10 Oxygen Delivery Method Room Air 07/08/25 10:10 Vital Signs Temperature 97.7 F 07/08/25 10:10 Pulse Rate 70 07/08/25 10:10 Respiratory Rate 18 07/08/25 10:10 Blood Pressure 162/74 H 07/08/25 10:10 Pulse Oximetry 91 07/08/25 10:10 Oxygen Delivery Method Room Air 07/08/25 10:10 Temperature 97.7 F 07/08/25 10:10 Pulse Rate 70 07/08/25 10:10 Respiratory Rate 18 07/08/25 10:10 Blood Pressure 162/74 H 07/08/25 10:10 Pulse Oximetry 91 07/08/25 10:10 Oxygen Delivery Method Room Air 07/08/25 10:10 MDM - Back Pain/Injury MDM Narrative Medical decision making narrative: This patient comes in with low back pain that occurred few days after a fall. She has been taking Tylenol for pain relief but this is not sufficient according to her report. She is able to ambulate with assistance of a walker. X-ray of the lumbar spine is obtained here and shows no acute findings. There is a old mild compression fracture identified at L5. The patient received an intramuscular injection of morphine 5 mg here. She has morphine listed as an allergy because of hallucinations but states that this was because of an IV dose. She also has had hallucinations with other IV narcotic pain medicines. She is okay to be discharged home and did receive prescriptions for Filion and Flexeril. I advised her to follow-up with her primary physician for ongoing management. Lab Data Labs: Lab Results 07/08/25 Range/Units 10:20 Urine Color Yellow (Yellow) Urine Appearance Clear (Clear) Urine pH 6.5 (5.0-8.5) Ur Specific [place] 1.015 (1.000-1.030) Urine Protein Negative (Negative) Urine Glucose (UA) 1+ A (Negative) Urine Ketones Negative (Negative) Urine Blood Negative (Negative) Urine Nitrite Negative (Negative) Urine Bilirubin Negative (Negative) Urine Urobilinogen 1.0 (0.2-1.0) Ur Leukocyte Esterase Negative (Negative) Urine RBC 0-2 (0-2) Urine WBC 0-2 (0-5) Ur Squamous Epith Cells Moderate A (None-Few) Urine Bacteria None (None) Imaging Data XR Lumbar Spine: Radiologist's impression: Mild compression deformity of L5 is present and is likely a chronic finding. Correlation with physical exam for focal tenderness in this region is recommended to exclude an acute injury if there is history of recent trauma. Discharge Plan Discharge Clinical Impression: Strain of lumbar region Patient Disposition: Home w/ Parent or Adult Condition: Stable Additional Instructions: Take medications as needed and directed. Increase activity as tolerated. Follow up with MD for ongoing management or return if worsening. Prescriptions: New cyclobenzaprine 10 mg tablet 10 mg PO TID Qty: 15 0RF hydrocodone-acetaminophen 5-325 mg tablet 1 tab PO Q4-6H PRN (Reason: pain) Qty: 20 0RF No Action levothyroxine 112 mcg capsule 112 mcg PO QDAY isosorbide mononitrate 120 mg tablet extended release 24 hr 120 mg PO QDAY lansoprazole 30 mg capsule,delayed release(DR/EC) 30 mg PO QDAY sertraline [Zoloft] 50 mg tablet 50 mg PO QDAY famotidine 20 mg tablet 20 mg PO QDAY spironolactone [Aldactone] 25 mg tablet 25 mg PO QDAY buspirone 15 mg tablet 15 mg PO BID losartan 100 mg tablet 100 mg PO QDAY allopurinol 100 mg tablet 100 mg PO BID amlodipine 10 mg tablet 10 mg PO QDAY fenofibrate nanocrystallized 145 mg tablet 145 mg PO QDAY anastrozole 1 mg tablet 1 mg PO QDAY calcium carbonate [Calcium 600] 600 mg calcium (1,500 mg) tablet 600 mg PO QDAY cholecalciferol (vitamin D3) [Vitamin D3] 25 mcg (1,000 unit) capsule 25 mcg PO QDAY prasugrel HCl [Effient] 5 mg tablet 5 mg PO QDAY ICaps AREDS2 250 mg-200 unit -12.5 mg-1 mg capsule PO metoprolol tartrate 50 mg tablet 50 mg PO QDAY rosuvastatin 40 mg tablet 40 mg PO QDAY aspirin [Adult Aspirin Regimen] 81 mg tablet,delayed release (DR/EC) 81 mg PO QDAY Follow Up/Referrals: Provider,Not a Local [Primary Care Provider, Family Practice] Stand Alone Forms: [facility] Info Instructions
--- OUTSIDE RECORDS SUMMARY | 2025-07-08 11:33 | XMS_ITS | CCD ---
Author Name Interface, [id number] lity Address [address] [place] [id number] [facility] Address [facility] [address] [address] Reason for Visit Social History Date Name Value 03/11/2025 Sex Female
--- OUTSIDE RECORDS SUMMARY | 2025-07-08 11:34 | XMS_ITS | CCD ---
Author Name Interface, [id number] lity Address [address] [place] [id number] [facility] Address [facility]0 [address] [address] Reason for Visit Social History Date Name Value 03/11/2025 Sex Female
[2025-07-08 11:44] VITALS: PULSE 70; RESP 16; O2SAT 92
== END 2025-07-08 11:59 | disposition home or self-care (01) ==
LOC: ED 11:32
PROVIDERS: Emergency Provider Emergency Medicine Emergency Medical Services
DX: S39.012A Strain of muscle, fascia and tendon of lower back, initial encounter (principal); W18.30XA Fall on same level, unspecified, initial encounter; Y92.099 Unspecified place in other non-institutional residence as the place of occurrence of the external cause
CPT/HCPCS: 72100; 81001; 94761; 99284; J2270